=== PATIENT | male | born 1955 | race Hispanic/Latino ===

== ENCOUNTER 2017-10-31 17:27 | Inpatient (IN) | payer MEDICAID ==
[2017-10-31 17:27] VITALS: BMI 34.1
[2017-10-31] MEDS ORDERED: Sodium Chloride 0.9% 1,000 ML IV SCH ×2 (18:15→19:57)
--- NOTE | 2017-10-31 18:15 | ED PDOC ---
"Arrival/HPI - General Chief Complaint: Alcohol Ingestion Time Seen by Provider: 10/31/17 18:08 Historian: Patient - History of Present Illness Narrative History of Present Illness (Text): 10/31/17 18:08 62 y/o male, pmh including htn/DM/alcohol withdrawal/A.fibb but not compliance with cardizem 30mg po at home/C5-C7 fracture history, psychiatric history including alcohol abuse, bib brother who found the patient intoxicated on the ground today around 12 pm with drinking/wine bottles around the floor. As per the brother, the patient has chronic alcoholic brother and used to live with his own girlfriend but not anymore. The brother came to visit him today and noted the patient is intoxicated on the ground, no broken glass on the ground, no urinary or bowel incontinence/retention, no other medical or psychological complaints. Past Medical History - Provider Review Nursing Documentation Reviewed: Yes - Infectious Disease Hx of Infectious Diseases: None, MRSA - Tetanus Immunization Tetanus Immunization: Unknown - Cardiac Hx Cardiac Disorders: Yes Hx Hypertension: Yes - Pulmonary Hx Respiratory Disorders: Yes Hx Sleep Apnea: Yes Hx Tuberculosis: No - Neurological Hx Neurological Disorder: No HX Cerebrovascular Accident: No Hx Seizures: No - HEENT Hx HEENT Disorder: No (wears eyeglasses) - Renal Hx Renal Disorder: No - Endocrine/Metabolic Hx Endocrine Disorders: No - Hematological/Oncological Hx Blood Disorders: No Hx Cancer: No - Integumentary Hx Dermatological Disorder: No - Musculoskeletal/Rheumatological Hx Arthritis: Yes (right knee and neck) - Gastrointestinal Hx Gastrointestinal Disorders: Yes - Genitourinary/Gynecological Hx Sexually Transmitted Diseases: No - Psychiatric Hx Anxiety: No Hx Bipolar Disorder: No Hx Depression: No Hx Post Traumatic Stress Disorder: No Hx Schizophrenia: No Hx Substance Use: No - Surgical History Hx Musculoskeletal Surgery: Yes Hx Orthopedic Surgery: Yes (right knee torn ligament 1976) Other/Comment: Neck, right wrist/hand sx pins 2007, 1992 cervical fusion c 4 5 6 was injured swimming in [place], - Anesthesia Hx Anesthesia: Yes Hx Anesthesia Reactions: No Hx Malignant Hyperthermia: No - Suicidal Assessment Feels Threatened In Home Enviroment: No Family/Social History - Physician Review Nursing Documentation Reviewed: Yes Family/Social History: Unknown Family HX Smoking Status: Heavy Smoker > 10 Cigarettes Daily Hx Alcohol Use: Yes Frequency of alcohol use: Daily Hx Substance Use: No Hx Substance Use Treatment: No Allergies/Home Meds Allergies/Adverse Reactions: Allergies No Known Allergies Allergy (Verified 10/31/17 17:46) Home Medications: Home Meds Medication Instructions Recorded Confirmed Pantoprazole [Protonix] 40 mg PO DAILY 03/28/15 10/31/17 Review of Systems - Review of Systems Systems not reviewed;Unavailable: Intoxicated Constitutional: absent: Fatigue, Fevers Eyes: absent: Vision Changes Respiratory: absent: SOB, Cough Cardiovascular: absent: Chest Pain Gastrointestinal: absent: Abdominal Pain, Nausea, Vomiting Neurological: absent: Headache, Dizziness Physical Exam Vital Signs Temp Pulse Pulse Resp BP Pulse Ox 10/31/17 22:30 91 H 20 10/31/17 20:24 123 H 20 148/96 H 95 10/31/17 19:54 120 H 20 140/79 96 10/31/17 19:36 122 H 20 145/87 98 10/31/17 18:24 114 H 131/71 10/31/17 17:27 97.7 F 131 H 18 159/95 H 98 - Systems Exam Head: Present: Atraumatic, Normocephalic, Tenderness (frontal forehead), Ecchymosis (frontal forehead approx. 2cm diameter), Other (Facial: visible and palpable ecchymosis with tenderness noted on the lt. eyebrow/periorbital and lt. facial cheek region, no abrasion/laceration, no periorbital swelling, no mandibular tenderness or erythematous. ). No: Contusion, Swelling, Abrasion, Laceration Pupils: Present: PERRL Extroacular Muscles: Present: EOMI Conjunctiva: Present: Normal Ears: Present: NORMAL TM, Normal Canal. No: Erythema Mouth: Present: Moist Mucous Membranes Pharnyx: No: ERYTHEMA, EXUDATE, TONSILS ENLARGED, Uvular Deviation Nose (External): Present: Atraumatic. No: Abrasion, Contusion, Laceration, Lesions Nose (Internal): Present: Normal Inspection, No Active Bleeding. No: Rhinorrhea , Septal Hematoma, Epistaxis Neck: Present: Normal Range of Motion, Trachea Midline. No: Meningeal Signs, MIDLINE TENDERNESS, Paraspinal Tenderness, Lymphadenopathy Respiratory/Chest: Present: Clear to Auscultation, Good Air Exchange. No: Respiratory Distress, Accessory Muscle Use Cardiovascular: Present: Regular Rate and Rhythm, Normal S1, S2. No: Murmurs Abdomen: Present: Normal Bowel Sounds. No: Tenderness, Distention, Peritoneal Signs, Rebound, Guarding Back: Present: Normal Inspection. No: CVA Tenderness, Midline Tenderness, Paraspinal Tenderness, Decubitus Ulcer Upper Extremity: Present: Normal Inspection, Normal ROM, Neurovascularly Intact , Capillary Refill < 2s. No: Cyanosis, Edema, Tenderness, Swelling, Deformity Lower Extremity: Present: Normal Inspection, Normal ROM, Neurovascularly Intact , Capillary Refill < 2 s. No: Edema, Tenderness, Swelling, Deformity Neurological: Present: GCS=15, Motor Func Grossly Intact, Memory Normal Skin: Present: Warm, Dry, Normal Color. No: Rashes Psychiatric: Present: Alert, Intoxicated Medical Decision Making ED Course and Treatment: 10/31/17 18:27 -labs/ua/drug screen/alcohol/ck/troponin/bnp -chest xray -CT head/facial/neck -IVF cardizem 20 and 5mg/hr -bus driver/monitor -Observe and reassess 10/31/17 20:36 -EKG: A.fibb @ 119 BPM with RVR, no ST elevation or depression, non-specific T wave changes on the inferior lead, compared with previous ekg. -CT head 1. No definitive acute intracranial hemorrhage or acute territorial type infarct on this motion limited study. 2. There is minimal periventricular hypodensity hypodensity, likely representing small vessel ischemic disease in a patient this age. -CT facial 1. There is a small lamina papyracea fracture of the posterior medial right orbital wall. The acuity of this finding is indeterminate. The remaining visualized facial bones are intact, without acute fracture. 2. There is bilateral proptosis. There is thickening of the bilateral optic nerves distally. Clinical correlation and possible orbital MRI with/without contrast are recommended. 3. Nonspecific sclerotic change is visualized within the right mandibular body. Chronic osteomyelitis is within the differential. -CT neck 1. There is a moderate decrease in height or compression fracture of the C6 vertebral body. Focal concavities or erosions are visualized of the C6 endplates. Osteomyelitis cannot be excluded. Correlation with prior studies and possible MRI are recommended. 2. The remaining cervical levels are intact, without acute fracture or subluxation. 3. The cervical lordosis is slightly reversed. 4. Spondylosis is visualized at multiple cervical levels. 5. Bilateral neural foramina is identified at C7-T1. 6. There is postoperative fusion of the C5-C7 vertebral bodies. -Chest xray the cardiac silhouette appears enlarged. Bibasilar atelectatic changes are visualized. Otherwise, there is no confluent infiltrate. There is mild prominence of the pulmonary vascular markings. -Pt. has no acute rt. periorbital swelling or tenderness, no mandibular tenderness or external visible signs of infection, no elevation of wbc. -Labs are non-significant except Anion gap 26, [id number], Lactate Dehydrogenase 1120, Alcohol level 401 (IV banana bag ordered). -Troponin and BNP within normal limit. -Pt. is awake now stated that he has chronic C5-C7 fracture, had the fall on the rt. side of the face years ago and has no rt. periorbital/facial swelling, banana bag IV ordered for him. I discussed with DR. Alexandre about the CT results and review the results today, stated that the fractures are appear to be old but agreed this possible osteomylitis need to be adressed until MRI is done. -CT facial and cervical show possible osteomylitis noted, IV vancomycin/zosyn ordered, ESR/CRP/Blood cultures ordered -Pt. will need admission to [facility] for a.fibb/possible osteomylitis/chronic facial and neck fracture. -Based on the [id number] score is 2, he will need to be anticogulated but will deferred to the admitting team. 10/31/17 21:19 -I spoke to DR. Avalos and the hospital medical assistant DR. Adler, discussed about the case/labs/radiology results, evaluate the patient, agreed to admit this patient for further work up. -I discussed the case with Dr. Alexandre and he agreed that this patient needs admission which he will put in the admission order. -Pt. is having the neck pain, morphine 6mg IV ordered as he stated that he has chronic neck pain. - Critical Care Critical Care Minutes: 30 minutes, 45 minutes Critical Care Time: Unstable Narrative Critical Care (Text): 11/01/17 00:46 A.fibb with RVR tachycardia requiring IV cardizem and drip, Possible osteomolitis on the cervical spine from the cervical fusion surgery and rt. mandibular, Risk for alcohol withdrawal and aspiration. - Lab Interpretations Lab Results: 10/31/17 17:45 10/31/17 17:45 Lab Results 10/31/17 20:40: Urine Opiates Screen Negative, Urine Methadone Screen Negative, Ur Barbiturates Screen Negative, Ur Phencyclidine Scrn Negative, Ur Amphetamines Screen Negative, U Benzodiazepines Scrn Negative, U Oth Cocaine Metabols Negative, U Cannabinoids Screen Negative 10/31/17 18:30: Hemoglobin A1c 7.6 H 10/31/17 18:30: C-React Prot High Sens 10.00 H 10/31/17 18:30: ESR 33 H 10/31/17 17:50: Alcohol, Quantitative 401 H* 10/31/17 17:50: Salicylates < 1 L, Acetaminophen < 10.0 L 10/31/17 17:45: Triglycerides 186 H, Cholesterol 230 H, LDL Cholesterol Direct 169 H, HDL Cholesterol 54 10/31/17 17:45: PT 12.2, INR 1.07, APTT 32.5 10/31/17 17:45: WBC 6.2 D, RBC 4.25, Hgb 14.8, Hct 43.7, MCV 102.8, MCH 34.8, MCHC 33.9, RDW 15.5 H, Plt Count 90 L, MPV 10.7, Gran % 54.4, Lymph % (Auto) 36.1 H, [place] % (Auto) 8.4 H, Eos % (Auto) 0.0 L, Baso % (Auto) 1.1, Gran # 3.35 , Lymph # (Auto) 2.2, [place] # (Auto) 0.5, Eos # (Auto) 0.0, Baso # (Auto) 0.07 10/31/17 17:45: Sodium 143, Potassium 4.0, Chloride 97 L, Carbon Dioxide 24, Anion Gap 26 H, BUN 4 L, Creatinine 0.7 L, Est GFR ( Amer) > 60, Est GFR (Non-Af Amer) > 60, Random Glucose 241 H, Calcium 8.8, Magnesium 1.9, Total Bilirubin 1.3, AST 172 H, ALT 131 H, Alkaline Phosphatase 105, Lactate Dehydrogenase 1120 H, Total Creatine Kinase 180, Troponin I < 0.01, NT-Pro-B Natriuret Pep 194, Total Protein 8.2, Albumin 4.5, Globulin 3.7, Albumin/ Globulin Ratio 1.2 - RAD Interpretation Radiology Orders: 10/31/17 18:11 CERVICAL SPINE W/O CONTRAST [CT] Stat HEAD W/O CONTRAST [CT] Stat MAXILLOFACIAL W/O CONTRAST [CT] Stat CHEST ONE VIEW [RAD] Stat CT Head Artifacts: Motion artifact limits this study. Brain: There is minimal periventricular hypodensity hypodensity, likely representing small vessel ischemic disease in a patient this age. The acuity of the white matter disease is indeterminate. The white-wheeler differentiation is preserved demonstrating no acute territorial type infarct. There is mild prominence of the ventricles and sulci, compatible with atrophy. No definitive acute intracranial hemorrhage is seen. Motion artifact limits evaluation for hemorrhage within the posterior fossa and anterior temporal lobes, although no hemorrhage is visualized in these regions on the facial and cervical CT studies. Midline shift: There is no midline shift. Ventricles: See above. Bones/joints: For discussion of findings involving the facial bones and paranasal sinuses, refer to the facial CT from the same day. The calvarium demonstrates no evidence for a depressed fracture. Soft tissues: There is minimal soft tissue swelling or scarring involving the left frontal scalp. GALA ROCHA | Final Radiology Report CONFIDENTIALITY STATEMENT This report is intended only for use by the referring physician, and only in accordance with law. If you received this in error, call [phone]. Page 2 of 2 Vasculature: There is atherosclerotic calcification of the intracranial internal carotid arteries. Sinuses: See above. Mastoid air cells: No mastoid effusion. Orbits: There is bilateral proptosis. IMPRESSION: 1. No definitive acute intracranial hemorrhage or acute territorial type infarct on this motion limited study. 2. There is minimal periventricular hypodensity hypodensity, likely representing small vessel ischemic disease in a patient this age. 3. Mild atrophy. 4. Additional CT findings described above. Thank you for allowing us to participate in the care of your patient. Dictated and Authenticated by: Biju Call MD 10/31/2017 7:53 PM Eastern Time ([place] & [place]) CT Facial: FINDINGS: Bones/joints: There is a small lamina papyracea fracture of the posterior medial right orbital wall. The acuity of this finding is indeterminate. The remaining visualized facial bones are intact, without acute fracture. Nonspecific sclerotic change is visualized within the right mandibular body. Chronic osteomyelitis is within the differential. Soft tissues: No acute facial soft tissue swelling. Orbits: There is bilateral proptosis. There is thickening of the bilateral optic nerves distally. Bilateral orbital lens implants are visualized. Sinuses: Small mucous retention cysts or polyps are visualized within the right maxillary sinus, with minimal mucosal thickening. There is minimal mucosal thickening of the left frontal sinus. No air-fluid levels. Dental: Hypodensity visualized adjacent to a right lower molar tooth, consistent with periodontal disease. Nasopharynx: There is nasal septal deviation to the left. GALA ROCHA | Final Radiology Report CONFIDENTIALITY STATEMENT This report is intended only for use by the referring physician, and only in accordance with law. If you received this in error, call [phone]. Page 2 of 2 IMPRESSION: 1. There is a small lamina papyracea fracture of the posterior medial right orbital wall. The acuity of this finding is indeterminate. The remaining visualized facial bones are intact , without acute fracture. 2. There is bilateral proptosis. There is thickening of the bilateral optic nerves distally. Clinical correlation and possible orbital MRI with/without contrast are recommended. 3. Nonspecific sclerotic change is visualized within the right mandibular body. Chronic osteomyelitis is within the differential. 4. Paranasal sinus disease is noted above. 5. Incidental/non-acute findings are described above. Thank you for allowing us to participate in the care of your patient. Dictated and Authenticated by: Biju Call MD 10/31/2017 8:03 PM Eastern Time ([place] & [place]) Cervical CT: Vertebrae: There is a moderate decrease in height or compression fracture of the C6 vertebral body. Focal concavities or erosions are visualized of the C6 endplates. Osteomyelitis cannot be excluded. The remaining cervical levels are intact, without acute fracture or subluxation. The cervical lordosis is slightly reversed. There is postoperative fusion of the C5-C7 vertebral bodies, with fusion hardware/wires involving the posterior elements. The facet alignment is preserved bilaterally. The occipital condyles and C1-C2 articulations appear intact. Discs/spinal canal/neural foramina: Spondylosis is visualized at multiple cervical levels. Bilateral neural foramina is identified at C7-T1. Soft tissues: The prevertebral soft tissues appear within normal limits. Vasculature: Atherosclerotic changes are visualized. Lung apices: No pneumothorax. Other findings: Facet arthropathy is identified at multiple cervical levels. IMPRESSION: GALA ROCHA | Final Radiology Report CONFIDENTIALITY STATEMENT This report is intended only for use by the referring physician, and only in accordance with law. If you received this in error, call [phone]. Page 2 of 2 1. There is a moderate decrease in height or compression fracture of the C6 vertebral body. Focal concavities or erosions are visualized of the C6 endplates. Osteomyelitis cannot be excluded. Correlation with prior studies and possible MRI are recommended. 2. The remaining cervical levels are intact, without acute fracture or subluxation. 3. The cervical lordosis is slightly reversed. 4. Spondylosis is visualized at multiple cervical levels. 5. Bilateral neural foramina is identified at C7-T1. 6. There is postoperative fusion of the C5-C7 vertebral bodies. Thank you for allowing us to participate in the care of your patient. Dictated and Authenticated by: Biju Call MD 10/31/2017 8:14 PM Eastern Time ( & [place]) Chest xray: FINDINGS: Lungs: Bibasilar atelectatic changes are visualized. Otherwise, there is no confluent infiltrate. There is mild prominence of the pulmonary vascular markings. Pleural space: No pleural effusions. No pneumothorax. Heart: The cardiac silhouette appears enlarged. Mediastinum: There is atherosclerotic calcification of the aortic arch. Bones/joints: Surgical wires are identified at the level of the lower cervical spine. IMPRESSION: 1. The cardiac silhouette appears enlarged. 2. Bibasilar atelectatic changes are visualized. Otherwise, there is no confluent infiltrate. 3. There is mild prominence of the pulmonary vascular markings. Thank you for allowing us to participate in the care of your patient. Dictated and Authenticated by: Biju Call MD 10/31/2017 8:20 PM Eastern Time ( & She) Carton Machine Operator: Radiologist - EKG Interpretation EKG Interpretation (Text): 10/31/17 18:27 -EKG: A.fibb @ 119 BPM with RVR, no ST elevation or depression, non-specific T wave changes on the inferior lead, compared with previous ekg. Interpreted by ED Physician: Yes Type: 12 lead EKG Comparison: Com.w/previous EKG - Medication Orders Current Medication Orders: Alprazolam (Xanax) 0.5 mg PO BID REGINA PRN Reason: Protocol Stop: 11/08/17 10:01 Last Admin: 11/01/17 17:31 Dose: 0.5 mg Re-Assess: Reassess Psych Meds Document 11/01/17 18:31 FDE (Rec: 11/01/17 19:30 FDE [id number]) Reassess Psych Med Effective Arformoterol Tartrate (Brovana) 15 mcg IH [id number] [facility] Last Admin: 11/01/17 08:00 Dose: 15 mcg Artificial Tears (Artificial Tears) 0 ml OU TID [facility] Last Admin: 11/01/17 17:44 Dose: 1 drop Budesonide (Pulmicort Respules) 0.25 mg IH [id number] [facility] Last Admin: 11/01/17 08:01 Dose: 0.25 mg Folic Acid (Folic Acid) 1 mg PO DAILY [facility] Last Admin: 11/01/17 09:13 Dose: 1 mg Guaifenesin (Robitussin) 100 mg PO Q4H PRN PRN Reason: Cough Hydromorphone HCl (Dilaudid) 0.5 mg IVP Q4H PRN PRN Reason: Pain, severe (8-10) Last Admin: 11/01/17 12:06 Dose: 0.5 mg [facility] Pain Assessment Document 11/01/17 12:06 RDS (Rec: 11/01/17 12:09 RDS [id number]) Pain Reassessment Is this a pain reassessment? No Presence of Pain Presence of Pain Yes Pain Scale Used Pain Scale Used Numeric Location Pain Location Body Beef Selector Description Intensity of Pain at present 10 IVP Administration Document 11/01/17 12:06 RDS (Rec: 11/01/17 12:09 RDS [id number]) Charges for Administration # of IVP Administrations 1 Re-Assess: MAR Pain Assessment Document 11/01/17 13:06 DEL (Rec: 11/01/17 15:05 DEL [id number]) Pain Reassessment Is this a pain reassessment? Yes Sleep Is patient sleeping during reassessment? Yes Sodium Chloride (Sodium Chloride 0.9%) 1,000 mls @ 1,000 mls/hr IV .Q1H [facility] Ceftriaxone Sodium (Rocephin 1 Gram Ivpb) 1 gm in 100 mls @ 100 mls/hr IVPB DAILY [facility] PRN Reason: Protocol Vancomycin HCl (Vancomycin 1gm) 1 gm in 250 mls @ 167 mls/hr IVPB Q12H REGINA PRN Reason: Protocol Last Admin: 11/01/17 15:12 Dose: 167 mls/hr eMAR Start Stop Document 11/01/17 15:12 DEL (Rec: 11/01/17 15:12 [id number]) Intravenous Solution Start Date 11/01/17 Start Time 15:12 End Date 11/01/17 End time 16:42 Total Infusion Time 90 Insulin Human Lispro (Humalog Med) 0 units SC ACHS REGINA PRN Reason: Protocol Last Admin: 11/01/17 17:33 Dose: Not Given Non-Admin Reason: Blood Sugar Parameter MAR Blood Glucose Document 11/01/17 17:33 DEL (Rec: 11/01/17 17:33 [id number]) Blood Glucose Finger Stick Blood Glucose (70-120) 149 Levalbuterol HCl (Xopenex) 1.25 mg IH [id number] PRN PRN Reason: Shortness of Breath Lorazepam (Ativan) 1 mg IVP Q6H PRN; Protocol PRN Reason: Symptoms of alcohol withdrawl Last Admin: 11/01/17 01:27 Dose: 1 mg IVP Administration Document 11/01/17 01:27 [facility] (Rec: 11/01/17 01:27 [id number]) Charges for Administration # of IVP Administrations 1 Re-Assess: Reassess Psych Meds Document 11/01/17 01:57 [facility] (Rec: 11/01/17 04:40 [id number]) Reassess Psych Med Effective Lorazepam (Ativan) 2 mg PO Q6H REGINA PRN Reason: Protocol Last Admin: 11/01/17 17:31 Dose: 2 mg Re-Assess: Reassess Psych Meds Document 11/01/17 18:31 DEL (Rec: 11/01/17 18:47 [facility] [id number]) Reassess Psych Med Effective Metoprolol Tartrate (Lopressor) 50 mg PO 0800,1800 [facility] Last Admin: 11/01/17 17:30 Dose: 50 mg MAR Pulse and Blood Pressure Document 11/01/17 17:30 DEL (Rec: 11/01/17 17:31 [id number]) Pulse Pulse Rate (60-90) 87 Blood Pressure Blood Pressure (100/60-150/90) 148/98 Multivitamins/Minerals (Therapeutic-M Tab) 1 tab PO 0800 [facility] Last Admin: 11/01/17 09:14 Dose: 1 tab Ondansetron HCl (Zofran Inj) 4 mg IVP Q4H PRN PRN Reason: Nausea/Vomiting Last Admin: 11/01/17 12:05 Dose: 4 mg IVP Administration Document 11/01/17 12:05 RDS (Rec: 11/01/17 12:06 RDS [id number]) Charges for Administration # of IVP Administrations 1 Pantoprazole Sodium (Protonix Ec Tab) 40 mg PO ACB REGINA Thiamine HCl (Vitamin B1 Tab) 100 mg PO DAILY [facility] Last Admin: 11/01/17 09:13 Dose: 100 mg Tobramycin Sulfate (Tobrex 0.3% Oph Soln) 1 drop OS QID [facility] Last Admin: 11/01/17 17:32 Dose: 1 drop Discontinued Medications Diltiazem HCl (Cardizem) 10 mg IVP STAT STA Stop: 10/31/17 18:13 Last Admin: 10/31/17 18:18 Dose: 10 mg IVP Administration Document 10/31/17 18:18 EWO (Rec: 10/31/17 18:18 EWO [id number]) Charges for Administration # of IVP Administrations 1 [facility] Pulse and Blood Pressure Document 10/31/17 18:18 EWO (Rec: 10/31/17 18:18 EWO [id number]) Pulse Pulse Rate (60-90) 114 Blood Pressure Blood Pressure (100/60-150/90) 132/71 Diltiazem HCl (Cardizem) 20 mg IVP STAT STA Stop: 10/31/17 18:13 Last Admin: 10/31/17 18:24 Dose: 20 mg IVP Administration Document 10/31/17 18:24 EWO (Rec: 10/31/17 18:24 EWO [id number]) Charges for Administration # of IVP Administrations 1 MAR Pulse and Blood Pressure Document 10/31/17 18:24 EWO (Rec: 10/31/17 18:24 EWO [id number]) Pulse Pulse Rate (60-90) 114 Blood Pressure Blood Pressure (100/60-150/90) 131/71 Diphenhydramine HCl (Benadryl) 25 mg PO ONCE ONE Stop: 11/01/17 17:40 Last Admin: 11/01/17 17:50 Dose: 25 mg Hydromorphone HCl (Dilaudid) 0.5 mg IVP STAT STA Stop: 11/01/17 00:14 Last Admin: 11/01/17 00:21 Dose: 0.5 mg [facility] Pain Assessment Document 11/01/17 00:21 [facility] (Rec: 11/01/17 00:21 [id number]) Pain Reassessment Is this a pain reassessment? No Presence of Pain Presence of Pain Yes Location Pain Location Body Site Neck IVP Administration Document 11/01/17 00:21 [facility] (Rec: 11/01/17 00:21 [id number]) Charges for Administration # of IVP Administrations 1 Re-Assess: [facility] Pain Assessment Document 11/01/17 01:21 [facility] (Rec: 11/01/17 04:40 [id number]) Pain Reassessment Is this a pain reassessment? Yes Sleep Is patient sleeping during reassessment? Yes Sodium Chloride (Sodium Chloride 0.9%) 1,000 mls @ 100 mls/hr IV .Q10H [facility] Last Admin: 10/31/17 18:19 Dose: 100 mls/hr eMAR Start Stop Document 10/31/17 18:19 EWO (Rec: 10/31/17 18:19 EWO [id number]) Intravenous Solution Start Date 10/31/17 Start Time 18:19 diltiaZEM IVPB 100mg in NS (Cardizem 100mg In Ns) 100 mls @ 5 mls/hr IV .Q20H PRN; Protocol; 5 MG/HR PRN Reason: TITRATE PER MD ORDER Last Admin: 10/31/17 19:54 Dose: 5 mls/hr eMAR Start Stop Document 10/31/17 19:54 SS (Rec: 10/31/17 19:55 SS [id number]) Intravenous Solution Start Date 10/31/17 Start Time 19:54 Multivitamins/Vitamin C 10 ml/Thiamine HCl 100 mg/ Folic Acid 1 mg/ Sodium Chloride 1,011.2 mls @ 100 mls/hr IV .Q10H7M ONE Stop: 11/01/17 05:57 Last Admin: 11/01/17 01:27 Dose: 100 mls/hr eMAR Start Stop Document 11/01/17 01:27 [facility] (Rec: 11/01/17 01:27 [id number]) Intravenous Solution Start Date 11/01/17 Start Time 01:27 Vancomycin HCl (Vancomycin 1gm) 1 gm in 250 mls @ 167 mls/hr IVPB STAT STA PRN Reason: Protocol Stop: 10/31/17 21:52 Last Admin: 11/01/17 00:53 Dose: 167 mls/hr eMAR Start Stop Document 11/01/17 00:53 [facility] (Rec: 11/01/17 00:54 [id number]) Intravenous Solution Start Date 11/01/17 Start Time 00:54 Piperacillin Sod/Tazobactam Sod (Zosyn 3.375 In Ns 100ml) 100 mls @ 200 mls/hr IVPB STAT STA PRN Reason: Protocol Stop: 10/31/17 20:52 Last Admin: 10/31/17 22:18 Dose: 200 mls/hr eMAR Start Stop Document 10/31/17 22:18 SS (Rec: 10/31/17 22:20 SS [id number]) Intravenous Solution Start Date 10/31/17 Start Time 22:20 Levalbuterol HCl (Xopenex) 1.25 mg IH [id number] PRN PRN Reason: Shortness of Breath Lorazepam (Ativan) 2 mg PO Q6H REGINA PRN Reason: Protocol Last Admin: 11/01/17 05:00 Dose: 2 mg Behavioural Document 11/01/17 05:00 [facility] (Rec: 11/01/17 05:00 [id number]) Maintenance Maintenance Dose Yes Metoprolol Tartrate (Lopressor) 50 mg PO STAT STA Stop: 10/31/17 23:13 Last Admin: 11/01/17 00:21 Dose: 50 mg MAR Pulse and Blood Pressure Document 11/01/17 00:21 [facility] (Rec: 11/01/17 00:22 [id number]) Pulse Pulse Rate (60-90) 124 Blood Pressure Blood Pressure (100/60-150/90) 137/86 Morphine Sulfate (Morphine) 2 mg IVP STAT STA Stop: 10/31/17 22:47 Last Admin: 10/31/17 22:58 Dose: 2 mg MAR Pain Assessment Document 10/31/17 22:58 [facility] (Rec: 10/31/17 22:58 [id number]) Pain Reassessment Is this a pain reassessment? No Presence of Pain Presence of Pain Yes Location Pain Location Body Site Neck IVP Administration Document 10/31/17 22:58 [facility] (Rec: 10/31/17 22:58 [id number]) Charges for Administration # of IVP Administrations 1 Re-Assess: MAR Pain Assessment Document 10/31/17 23:58 [facility] (Rec: 11/01/17 04:41 [id number]) Pain Reassessment Is this a pain reassessment? Yes Presence of Pain Presence of Pain Yes Pantoprazole Sodium (Protonix Inj) 40 mg IVP DAILY [facility] Last Admin: 11/01/17 09:15 Dose: 40 mg IVP Administration Document 11/01/17 09:15 DEL (Rec: 11/01/17 09:15 DEL [id number]) Charges for Administration # of IVP Administrations 1 Phenylephrine HCl (Phenylephrine Opht 10% Soln) 0 ml OU Q2M REGINA Stop: 11/01/17 12:35 Last Admin: 11/01/17 12:56 Dose: 1 ml Tropicamide (Mydriacyl 1% Opht Soln 15ml) 2 drop OU Q2M REGINA Stop: 11/01/17 12:35 Last Admin: 11/01/17 12:55 Dose: 2 drop - PA / [employer] / Resident Statement MD/DO has reviewed & agrees with the documentation as recorded. Disposition/Present on Arrival - Present on Arrival Any Indicators Present on Arrival: No History of DVT/PE: No History of Uncontrolled Diabetes: No Urinary Catheter: No History of Decub. Ulcer: No History Surgical Site Infection Following: None - Disposition Have Diagnosis and Disposition been Completed?: Yes Diagnosis: Atrial fibrillation with rapid ventricular response, Alcohol intoxication, Fall , Lamina papyracea fracture, Abnormal CT scan Disposition: HOSPITALIZED Disposition Time: 18:29 Patient Plan: Admission, Telemetry Patient Problems: Current Active Problems Problem Status Onset Atrial fibrillation with rapid ventricular response Acute Alcohol intoxication Acute Fall Acute Lamina papyracea fracture Acute Abnormal CT scan Acute Condition: STABLE"
[2017-10-31] MEDS ORDERED: diltiaZEM IVPB 100mg in NS 100 ML IV PRN (18:24)
[2017-10-31 18:27] LABS: BASO # 0.07 K/mm3 (0.0-2.0); BASO % 1.1 % (0.0-3.0); GRAN # 3.35 (1.4-6.5); GRAN % 54.4 % (50.0-68.0); HEMOGLOBIN 14.8 g/dL (14.0-18.0); LYMPH # 2.2 (1.2-3.4); LYMPH % 36.1 % (22.0-35.0); MEAN CELL VOLUME 102.8 fl (80.0-105.0); MEAN CORPUSCULAR HEMOGLOBIN 34.8 pg (25.0-35.0); MEAN CORPUSCULAR HGB CONC 33.9 g/dl (31.0-37.0); MEAN PLATELET VOLUME 10.7 fl (7.0-11.0); MONO # 0.5 (0.1-0.6); MONO % 8.4 % (1.0-6.0); RBC 4.25 10^6/uL (3.5-6.1); RED CELL DISTRIBUTION WIDTH 15.5 % (11.5-14.5); WHITE BLOOD COUNT 6.2 10^3/ul (4.5-11.0)
[2017-10-31 18:33] LABS: ALB/GLOB RATIO 1.2 (1.1-1.8); ALBUMIN 4.5 g/dL (3.0-4.8); CALCIUM 8.8 mg/dL (8.4-10.5); GFR AFRICAN-AMERICAN > 60; GFR NON-AFRICAN AMERICAN > 60
[2017-10-31 18:41] LABS: INR 1.07 (0.93-1.08); PARTIAL THROMBOPLASTIN TIME 32.5 Seconds (25.1-36.5); PROTHROMBIN TIME 12.2 SECONDS (9.4-12.5)
[2017-10-31 18:45] LABS: ALT/SGPT 131 U/L (7-56); AST/SGOT 172 U/L (17-59); B-TYPE NATRIURETIC PEPTIDE 194 pg/mL (0-450); BLOOD UREA NITROGEN 4 mg/dL (7-21); TROPONIN I < 0.01 ng/mL
[2017-10-31 19:23] LABS: ACETAMINOPHEN < 10.0 ug/ml (10.0-20.0); SALICYLATE < 1 mg/dL (2.0-20.0)
[2017-10-31] MEDS ORDERED: Multivitamin (MVI) 10 ML, Thiamine 100 MG, Folic Acid 1 MG in Sodium Chloride 0.9% 1,00... IV ONE (19:51)
--- NOTE | 2017-10-31 19:53 | CT ---
EXAM: CT Head Without Intravenous Contrast EXAM DATE/TIME: 10/31/2017 6:11 PM CLINICAL HISTORY: The patient age is 62 years old and is male; Injury or trauma; Fall; Initial encounter; Blunt trauma (contusions or hematomas); Consciousness not specified; Additional info: Fall, ETOH Facility exam id and description: Ct heads head w/o contrast TECHNIQUE: Axial computed tomography images of the head/brain without intravenous contrast. All CT scans at this facility use one or more dose reduction techniques, viz.: automated exposure control; ma/kV adjustment per patient size (including targeted exams where dose is matched to indication; i.e. head); or iterative reconstruction technique. Coronal and sagittal reformatted images were created and reviewed. COMPARISON: No relevant prior studies available. FINDINGS: Artifacts: Motion artifact limits this study. Brain: There is minimal periventricular hypodensity hypodensity, likely representing small vessel ischemic disease in a patient this age. The acuity of the white matter disease is indeterminate. The white-wheeler differentiation is preserved demonstrating no acute territorial type infarct. There is mild prominence of the ventricles and sulci, compatible with atrophy. No definitive acute intracranial hemorrhage is seen. Motion artifact limits evaluation for hemorrhage within the posterior fossa and anterior temporal lobes, although no hemorrhage is visualized in these regions on the facial and cervical CT studies. Midline shift: There is no midline shift. Ventricles: See above. Bones/joints: For discussion of findings involving the facial bones and paranasal sinuses, refer to the facial CT from the same day. The calvarium demonstrates no evidence for a depressed fracture. Soft tissues: There is minimal soft tissue swelling or scarring involving the left frontal scalp. Vasculature: There is atherosclerotic calcification of the intracranial internal carotid arteries. Sinuses: See above. Mastoid air cells: No mastoid effusion. Orbits: There is bilateral proptosis. IMPRESSION: 1. No definitive acute intracranial hemorrhage or acute territorial type infarct on this motion limited study. 2. There is minimal periventricular hypodensity hypodensity, likely representing small vessel ischemic disease in a patient this age. 3. Mild atrophy. 4. Additional CT findings described above.
--- NOTE | 2017-10-31 20:03 | CT ---
EXAM: CT Maxillofacial Without Intravenous Contrast EXAM DATE/TIME: 10/31/2017 6:11 PM CLINICAL HISTORY: The patient age is 62 years old and is male; Injury or trauma; Fall; Initial encounter; Blunt trauma (contusions or hematomas); Forehead; Additional info: Fall, ETOH Facility exam id and description: Ct faces maxillofacial w/o contrast TECHNIQUE: Axial computed tomography images of the face without intravenous contrast. All CT scans at this facility use one or more dose reduction techniques, viz.: automated exposure control; ma/kV adjustment per patient size (including targeted exams where dose is matched to indication; i.e. head); or iterative reconstruction technique. Coronal and sagittal reformatted images were created and reviewed. COMPARISON: No relevant prior studies available. FINDINGS: Bones/joints: There is a small lamina papyracea fracture of the posterior medial right orbital wall. The acuity of this finding is indeterminate. The remaining visualized facial bones are intact, without acute fracture. Nonspecific sclerotic change is visualized within the right mandibular body. Chronic osteomyelitis is within the differential. Soft tissues: No acute facial soft tissue swelling. Orbits: There is bilateral proptosis. There is thickening of the bilateral optic nerves distally. Bilateral orbital lens implants are visualized. Sinuses: Small mucous retention cysts or polyps are visualized within the right maxillary sinus, with minimal mucosal thickening. There is minimal mucosal thickening of the left frontal sinus. No air-fluid levels. Dental: Hypodensity visualized adjacent to a right lower molar tooth, consistent with periodontal disease. Nasopharynx: There is nasal septal deviation to the left. IMPRESSION: 1. There is a small lamina papyracea fracture of the posterior medial right orbital wall. The acuity of this finding is indeterminate. The remaining visualized facial bones are intact, without acute fracture. 2. There is bilateral proptosis. There is thickening of the bilateral optic nerves distally. Clinical correlation and possible orbital MRI with/without contrast are recommended. 3. Nonspecific sclerotic change is visualized within the right mandibular body. Chronic osteomyelitis is within the differential. 4. Paranasal sinus disease is noted above. 5. Incidental/non-acute findings are described above.
--- NOTE | 2017-10-31 20:14 | CT ---
EXAM: CT Cervical Spine Without Intravenous Contrast EXAM DATE/TIME: 10/31/2017 6:11 PM CLINICAL HISTORY: The patient age is 62 years old and is male; Injury or trauma; Fall; Initial encounter; Blunt trauma; Additional info: Fall, ETOH Facility exam id and description: Ct csps cervical spine w/o contrast TECHNIQUE: Axial computed tomography images of the cervical spine without intravenous contrast. All CT scans at this facility use one or more dose reduction techniques, viz.: automated exposure control; ma/kV adjustment per patient size (including targeted exams where dose is matched to indication; i.e. head); or iterative reconstruction technique. Coronal and sagittal reformatted images were created and reviewed. COMPARISON: No relevant prior studies available. FINDINGS: Vertebrae: There is a moderate decrease in height or compression fracture of the C6 vertebral body. Focal concavities or erosions are visualized of the C6 endplates. Osteomyelitis cannot be excluded. The remaining cervical levels are intact, without acute fracture or subluxation. The cervical lordosis is slightly reversed. There is postoperative fusion of the C5-C7 vertebral bodies, with fusion hardware/wires involving the posterior elements. The facet alignment is preserved bilaterally. The occipital condyles and C1-C2 articulations appear intact. Discs/spinal canal/neural foramina: Spondylosis is visualized at multiple cervical levels. Bilateral neural foramina is identified at C7-T1. Soft tissues: The prevertebral soft tissues appear within normal limits. Vasculature: Atherosclerotic changes are visualized. Lung apices: No pneumothorax. Other findings: Facet arthropathy is identified at multiple cervical levels. IMPRESSION: 1. There is a moderate decrease in height or compression fracture of the C6 vertebral body. Focal concavities or erosions are visualized of the C6 endplates. Osteomyelitis cannot be excluded. Correlation with prior studies and possible MRI are recommended. 2. The remaining cervical levels are intact, without acute fracture or subluxation. 3. The cervical lordosis is slightly reversed. 4. Spondylosis is visualized at multiple cervical levels. 5. Bilateral neural foramina is identified at C7-T1. 6. There is postoperative fusion of the C5-C7 vertebral bodies.
--- NOTE | 2017-10-31 20:21 | RAD ---
EXAM: XR Chest, 1 View EXAM DATE/TIME: 10/31/2017 6:11 PM CLINICAL HISTORY: The patient age is 62 years old and is male; Signs and symptoms; Other: Medical clearance Facility exam id and description: Rad chest 1 chest one view TECHNIQUE: Frontal view of the chest. COMPARISON: DX - CHEST PORTABLE 2016-06-09 17:01 FINDINGS: Lungs: Bibasilar atelectatic changes are visualized. Otherwise, there is no confluent infiltrate. There is mild prominence of the pulmonary vascular markings. Pleural space: No pleural effusions. No pneumothorax. Heart: The cardiac silhouette appears enlarged. Mediastinum: There is atherosclerotic calcification of the aortic arch. Bones/joints: Surgical wires are identified at the level of the lower cervical spine. IMPRESSION: 1. The cardiac silhouette appears enlarged. 2. Bibasilar atelectatic changes are visualized. Otherwise, there is no confluent infiltrate. 3. There is mild prominence of the pulmonary vascular markings.
[2017-10-31] MEDS ORDERED: Piperacillin/Tazobact 3.375 gm 100 ML IVPB STA (20:23)
[2017-10-31] MEDS ORDERED: Vancomycin 1gm in NS 250ml 1 GM/250 ML BAG IVPB STA (20:23)
[2017-10-31] MEDS ORDERED: Morphine 5 MG/ML SYRINGE IVP STA (21:18)
[2017-10-31 21:39] LABS: BARBITURATES, UR NEGATIVE (NEGATIVE); BENZODIAZEPINES, UR NEGATIVE (NEGATIVE); OPIATES, UR NEGATIVE (NEGATIVE); PHENCYCLIDINE, UR NEGATIVE (NEGATIVE)
[2017-10-31] MEDS ORDERED: Levalbuterol 1.25 MG/3 ML Inhal Soln UD IH PRN (22:43)
[2017-10-31] MEDS ORDERED: Morphine 2 mg/ml ISec IVP STA (22:46)
--- NOTE | 2017-10-31 23:30 | CP.PCM.HP ---
<Nayely Hanson - Last Filed: 11/01/17 00:53> History of Present Illness - History of Present Illness History of Present Illness: Nayely Hanson, PGY1, H&P for Dr Avalos: CC: palpitations 62 year old male with PMH afib on Eliquis, HTN, DM?, Vitamin D deficiency, presents for palpations for past few hours. Pt states that he has been drinking alcohol quite a lot yesterday and today, started feeling palpitations, denies cp , diaphoresis, abdominal pain, nausea, vomiting, dizziness. Pt was quite intoxicated at his brother's home, and brought to the ED by brother. Pt also reports that he tripped on a rug 3 days ago, and hit his head. Denies fever, chills, worsening neck pain, sob, epigastric pain, constipation, diarrhea, leg swelling. Pt reports a chronic cough as he is a smoker. In ED, pt afebrile, afib with RVR HR 119 on 12 lead EKG, given Cardizem 30 mg IV in ED, started on cardizem drip. CT head neg. Facial CT shows a small lamina papyracea fracture of posterior medial right orbital wall. CT neck shows focal concavities/erosions of C6 endplates - concerning for osteomeyelitis. 12 point ROS obtained and negative, except as per hPI. PMH: afib on Eliquis, HTN, DM?, Vitamin D deficiency PSH: spine, right wrist and right knee surgery many years ago in an accident ALL: Ibuprofen (GERD), Librium (nausea) FH: denies SH: Drinks a bottle of wine daily with some beers. + tobacco use. Home Meds: Norvasc, Metoprolol 50 mg PO BID, Vitamin D 50,000 units weekly, Eliquis 2.5 mg PO BID. Does not recall taking Cardizem at home. Pharmacy: [facility] in [facility]; call in AM to confirm meds PMD: Dr Zhou in [facility] Present on Admission - Present on Admission Any Indicators Present on Admission: No History of DVT/PE: No History of Uncontrolled Diabetes: No Urinary Catheter: No Decubitus Ulcer Present: No Review of Systems - Review of Systems All systems: reviewed and no additional remarkable complaints except Review of Systems: as per HPI Past Patient History - Infectious Disease Hx of Infectious Diseases: None, MRSA - Tetanus Immunizations Tetanus Immunization: Unknown - Past Medical History & Family History Past Medical History?: Yes - Past Social History Smoking Status: Heavy Smoker > 10 Cigarettes Daily - CARDIAC Hx Cardiac Disorders: Yes Hx Hypertension: Yes - PULMONARY Hx Respiratory Disorders: Yes Hx Sleep Apnea: Yes Hx Tuberculosis: No - NEUROLOGICAL Hx Neurological Disorder: No HX Cerebrovascular Accident: No Hx Seizures: No - HEENT Hx HEENT Problems: No (wears eyeglasses) - RENAL Hx Chronic Kidney Disease: No - ENDOCRINE/METABOLIC Hx Endocrine Disorders: No - HEMATOLOGICAL/ONCOLOGICAL Hx Blood Disorders: No Hx Cancer: No - INTEGUMENTARY Hx Dermatological Problems: No - MUSCULOSKELETAL/RHEUMATOLOGICAL Hx Arthritis: Yes (right knee and neck) - GASTROINTESTINAL Hx Gastrointestinal Disorders: Yes - GENITOURINARY/GYNECOLOGICAL Hx Sexually Transmitted Disorders: No - PSYCHIATRIC Hx Anxiety: No Hx Bipolar Disorder: No Hx Depression: No Hx Post Traumatic Stress Disorder: No Hx Schizophrenia: No Hx Substance Use: No - SURGICAL HISTORY Hx Musculoskeletal Surgery: Yes Hx Orthopedic Surgery: Yes (right knee torn ligament 1976) Other/Comment: Neck, right wrist/hand sx pins 2007, 1992 cervical fusion c 4 5 6 was injured swimming in [place], - ANESTHESIA Hx Anesthesia: Yes Hx Anesthesia Reactions: No Hx Malignant Hyperthermia: No Meds Allergies/Adverse Reactions: Allergies Allergy/AdvReac Type Severity Reaction Status Date / Time No Known Allergies Allergy Verified 10/31/17 17:46 Physical Exam - Constitutional Appears: Unkempt, Older Than Stated Age Additional comments: intoxicated - Head Exam Head Exam: NORMAL INSPECTION, NORMOCEPHALIC - Eye Exam Eye Exam: EOMI, PERRL. absent: Conjunctival injection, Nystagmus, Periorbital swelling, Periorbital tenderness, Scleral icterus Pupil Exam: NORMAL ACCOMODATION, PERRL. absent: Fixed, Irregular, Miosis, Unequal - ENT Exam ENT Exam: Mucous Membranes Moist. absent: Mucous Membranes Dry - Neck Exam Additional comments: + posterior cervical neck scar noted. active ROM intact in flexion, limited sidebending, extension due to prior injury. - Respiratory Exam Respiratory Exam: absent: Accessory Muscle Use, Chest Wall Tenderness, Rales, Rhonchi, Respiratory Distress Additional comments: Mild expiratory wheezing upper lobes bilaterally - Cardiovascular Exam Cardiovascular Exam: Irregular Rhythm - GI/Abdominal Exam GI & Abdominal Exam: Normal Bowel Sounds, Soft. absent: Distended, Firm, Guarding, Mass, Rigid, Tenderness - Extremities Exam Extremities exam: Positive for: normal capillary refill, pedal edema, pedal pulses present. Negative for: calf tenderness - Back Exam Back exam: NORMAL INSPECTION - Neurological Exam Neurological exam: Alert, Oriented x3 - Psychiatric Exam Psychiatric exam: Normal Affect, Normal Mood - Skin Skin Exam: Dry, Normal Color, Warm Results - Vital Signs Recent Vital Signs: Last Vital Signs Temp 97.7 F 10/31/17 17:27 Pulse 123 H 10/31/17 20:24 Resp 20 10/31/17 20:24 BP 148/96 H 10/31/17 20:24 Pulse Ox 95 10/31/17 20:24 - Labs Result Diagrams: 10/31/17 17:45 10/31/17 17:45 Assessment & Plan - Assessment and Plan (Free Text) Assessment: 62 year old male with PMH afib on Eliquis, HTN, DM?, Vitamin D deficiency, presents for afib with RVR 2/2 alcohol intoxication, found to have possible osteomyelitis of cervical C6 on CT neck: Afib with RVR: 2/2 alcohol intoxication, medication noncompliance - EKG: A.fibb @ 119 BPM with RVR, no ST elevation or depression, non-specific T wave changes on the inferior lead, compared with previous ekg. - trop neg x1 - Given Cardizem 30 mg IV in ED, started on Cardizem drip - Started on home Metoprolol 50 mg PO BID - Hold home Norvasc for now - resumed home Eliquis 2.5 mg PO BID (reconsider since pt is alcoholic/falls). CHADS2 score 2. - Call pharmacy in AM to confirm home meds - Cont to monitor Osteomyelitis of C7: incidental finding, acute vs chronic? - CT neck shows a moderate decrease in height or compression fracture of the C6 vertebral body. Focal concavities or erosions are visualized of the C6 endplates. Osteomyelitis cannot be excluded. - No worsening of neck pain, fevers, chills - ESR 33 - MRI cervical spine in AM Alcohol intoxication/impending withdrawal: - CIWA - Fall/aspiration precautions - Ativan PO azul, IV prn - thiamin, folic acid, multivitamin - ETOH level 200s Transaminitis: - ALT 172, AST 131 - Previously high LFTS noted - likely alcohol related - Cont to monitor. Avoid hepatotoxic agents. Hx of HTN: -c/w home med metoprolo - hold home Norvasc Hx of COPD/smoking: - Pulmicort, brovana, xopenex prn - Advised cessation Pharmacy: call in AM to confirm home meds PPX: Eliquis, Protonix Discussed with Dr Avalos. - Date & Time Date: 11/01/17 Time: 00:53 <Yohannes Avalos P - Last Filed: 11/01/17 20:13> Results - Vital Signs Recent Vital Signs: Last Vital Signs Temp 98.4 F 11/01/17 18:00 Pulse 110 H 11/01/17 18:00 Resp 20 11/01/17 18:00 BP 148/98 H 11/01/17 18:00 Pulse Ox 95 11/01/17 06:00 - Labs Result Diagrams: 11/01/17 08:00 11/01/17 08:00 Labs: Laboratory Results - last 24 hr 11/01/17 11/01/17 11/01/17 02:00 08:00 08:00 WBC 4.8 D RBC 4.10 Hgb 14.0 Hct 42.1 MCV 102.7 MCH 34.1 MCHC 33.3 RDW 15.3 H Plt Count 71 L MPV 10.6 Gran % 60.2 Lymph % (Auto) 31.1 [place] % (Auto) 7.9 H Eos % (Auto) 0.2 L Baso % (Auto) 0.6 Gran # 2.90 Lymph # (Auto) 1.5 [place] # (Auto) 0.4 Eos # (Auto) 0.0 Baso # (Auto) 0.03 Sodium 141 Potassium 3.7 Chloride 97 L Carbon Dioxide 29 Anion Gap 19 BUN 5 L Creatinine 0.6 L Est GFR ( Amer) > 60 Est GFR (Non-Af Amer) > 60 POC Glucose (mg/dL) Random Glucose 201 H Calcium 8.9 Phosphorus 3.0 Magnesium 1.6 L Total Bilirubin 1.7 H AST 155 H ALT 120 H Alkaline Phosphatase 98 Total Protein 7.7 Albumin 4.3 Globulin 3.4 Albumin/Globulin Ratio 1.3 Urine Color Yellow Urine Appearance Sl cloudy Urine pH 6.0 Ur Specific [place] 1.025 Urine Protein 30 H Urine Glucose (UA) 100 H Urine Ketones 15 H Urine Blood Trace-intact H Urine Nitrate Negative Urine Bilirubin Negative Urine Urobilinogen 2.0 H Ur Leukocyte Esterase Negative Urine RBC 0 - 2 Urine WBC 0 - 2 Ur Epithelial Cells 0 - 2 11/01/17 11/01/17 11/01/17 08:00 11:43 16:49 WBC RBC Hgb Hct MCV MCH MCHC RDW Plt Count MPV Gran % Lymph % (Auto) [place] % (Auto) Eos % (Auto) Baso % (Auto) Gran # Lymph # (Auto) [place] # (Auto) Eos # (Auto) Baso # (Auto) Sodium Potassium Chloride Carbon Dioxide Anion Gap BUN Creatinine Est GFR ( Amer) Est GFR (Non-Af Amer) POC Glucose (mg/dL) 166 H 173 H 149 H Random Glucose Calcium Phosphorus Magnesium Total Bilirubin AST ALT Alkaline Phosphatase Total Protein Albumin Globulin Albumin/Globulin Ratio Urine Color Urine Appearance Urine pH Ur Specific [place] Urine Protein Urine Glucose (UA) Urine Ketones Urine Blood Urine Nitrate Urine Bilirubin Urine Urobilinogen Ur Leukocyte Esterase Urine RBC Urine WBC Ur Epithelial Cells Attending/Attestation - Attestation I have personally seen and examined this patient.: Yes I have fully participated in the care of the patient.: Yes I have reviewed all pertinent clinical information: Yes Notes (Text): Assessment Patient brought in to the hospital by his brother for acute alcohol intoxication , CT cervical spine showed incidental finding of erosion of endplates of his 3 fused spine with no prior imaging to compare with, as per the patient no new neurological complains, no new pain, but has chronic pain, intermittent tingling in both hands. H/o afib, on eliquis, tobacco abuse, alcohol abuse, obese, sleep apnea, htn. Plan Patient restarted on home meds Scheduled and prn bzd, thiamine, mvt, fa Afib rate control with scheduled metoprolol will start at home dose prn neb, azul pulimchort Since patient is clinically not septic or has picture of acute or chronic infection abx was not started and MRI will scheduled to assess abnormal CT findings to look acute marrow edema. Counselled about tobacco, alcohol cessation and compliance with medications See orders for detail. 11/01/17 20:12
[2017-10-31 23:45] LABS: HDL CHOLESTEROL 54 mg/dL (29-60)
[2017-10-31 23:55] LABS: LDL CHOLESTEROL 169 mg/dL (0-129)
[2017-11-01] MEDS ORDERED: HYDROmorphone 0.5 mg/0.5 ml ISec IVP STA (00:13)
[2017-11-01] MEDS ORDERED: Levalbuterol 1.25 MG/3 ML Inhal Soln UD IH PRN (02:00)
[2017-11-01 02:19] LABS: URINE BILIRUBIN NEGATIVE (NEGATIVE); URINE BLOOD TRACE-INTACT (NEGATIVE); URINE GLUCOSE (UA) 100 mg/dL (NEGATIVE); URINE LEUKOCYTE ESTERASE NEGATIVE Leu/uL (NEGATIVE); URINE PROTEIN 30 mg/dL (<30 mg/dL)
[2017-11-01 02:21] LABS: URINE APPEARANCE SL CLOUDY (CLEAR); URINE COLOR YELLOW (YELLOW)
[2017-11-01 02:22] LABS: URINE EPITHELIAL CELLS 0 - 2 /hpf (0-5); URINE RBC 0 - 2 /hpf (0-2); URINE WBC 0 - 2 /hpf (0-6)
[2017-11-01] MEDS: Arformoterol 15 mcg/2 ml Inh Sol IH SCH ×2 (08:00→20:40)
[2017-11-01] MEDS: Budesonide 0.25 mg/2 ml Inhal Susp UD IH SCH ×2 (08:01→20:40)
[2017-11-01 08:21] LABS: BASO # 0.03 K/mm3 (0.0-2.0); BASO % 0.6 % (0.0-3.0); EOS % 0.2 % (1.5-5.0); GRAN # 2.9 (1.4-6.5); GRAN % 60.2 % (50.0-68.0); LYMPH # 1.5 (1.2-3.4); LYMPH % 31.1 % (22.0-35.0); MEAN CELL VOLUME 102.7 fl (80.0-105.0); MEAN CORPUSCULAR HEMOGLOBIN 34.1 pg (25.0-35.0); MEAN CORPUSCULAR HGB CONC 33.3 g/dl (31.0-37.0); MEAN PLATELET VOLUME 10.6 fl (7.0-11.0); MONO # 0.4 (0.1-0.6); MONO % 7.9 % (1.0-6.0); RBC 4.1 10^6/uL (3.5-6.1); RED CELL DISTRIBUTION WIDTH 15.3 % (11.5-14.5); WHITE BLOOD COUNT 4.8 10^3/ul (4.5-11.0)
[2017-11-01] MEDS: Insulin Lispro (humaLOG) MEDIUM Coverage SC SCH ×4 (08:21→23:00)
[2017-11-01 08:44] LABS: ALB/GLOB RATIO 1.3 (1.1-1.8); ALBUMIN 4.3 g/dL (3.0-4.8); ALT/SGPT 120 U/L (7-56); AST/SGOT 155 U/L (17-59); BLOOD UREA NITROGEN 5 mg/dL (7-21); CALCIUM 8.9 mg/dL (8.4-10.5); GFR AFRICAN-AMERICAN > 60; GFR NON-AFRICAN AMERICAN > 60
[2017-11-01] MEDS: Multivitamin With Minerals Tab PO SCH (09:14)
--- NOTE | 2017-11-01 09:51 | CARD ---
APPROVED REPORT EKG Measurement Heart [id number] <Conclusion> Atrial fibrillation with rapid ventricular response Possible Inferior infarct, age undetermined Abnormal ECG
[2017-11-01] MEDS: Aritificial Tears (15ml) OU SCH ×3 (10:00→17:44)
[2017-11-01] MEDS ORDERED: Folic Acid 1 MG in Sodium Chloride 0.9% 50 ML IV SCH (10:00)
[2017-11-01] MEDS: HYDROmorphone 0.5 mg/0.5 ml ISec IVP PRN ×2 (12:06→20:29)
[2017-11-01] MEDS: Phenylephrine 10% Opht (5 ml) OU SCH ×3 (12:45→12:56)
[2017-11-01] MEDS: Tropicamide 1% Opht 150 DROP/15 ML OU SCH ×3 (12:45→12:55)
--- NOTE | 2017-11-01 14:23 | CP.PCM.PN ---
<Logan Rodriguez - Last Filed: 11/01/17 17:22> Subjective - Date & Time of Evaluation Date of Evaluation: 11/01/17 Time of Evaluation: 14:06 - Subjective Subjective: Medicine Progress Note: Patient seen and assessed at bedside. No acute events overnight noted by patient or nursing staff. Patient continues to endorse neck pain that he reports is chronic but acutely exacerbated. He denies fever, chills, headache, changes in his vision, chest pain, palpitations, SOB, wheezing, abdominal pain, N/V/D/C, urinary symptoms, skin changes or any numbness/tingling/weakness of any extremity. Objective - Vital Signs/Intake and Output Vital Signs (last 24 hours): Temp Pulse Resp BP Pulse Ox 98.2 F 81 20 143/99 H 95 11/01/17 12:00 11/01/17 12:00 11/01/17 12:00 11/01/17 12:00 11/01/17 06:00 Intake and Output: 11/01/17 11/01/17 06:59 18:59 Intake Total 875 600 Output Total 800 Balance 875 -200 - Medications Medications: Current Medications Alprazolam (Xanax) 0.5 mg PO BID [facility] PRN Reason: Protocol Stop: 11/08/17 10:01 Last Admin: 11/01/17 09:13 Dose: 0.5 mg Arformoterol Tartrate (Brovana) 15 mcg IH [id number] [facility] Last Admin: 11/01/17 08:00 Dose: 15 mcg Artificial Tears (Artificial Tears) 0 ml OU TID [facility] Budesonide (Pulmicort Respules) 0.25 mg IH [id number] [facility] Last Admin: 11/01/17 08:01 Dose: 0.25 mg Folic Acid (Folic Acid) 1 mg PO DAILY [facility] Last Admin: 11/01/17 09:13 Dose: 1 mg Guaifenesin (Robitussin) 100 mg PO Q4H PRN PRN Reason: Cough Hydromorphone HCl (Dilaudid) 0.5 mg IVP Q4H PRN PRN Reason: Pain, severe (8-10) Last Admin: 11/01/17 12:06 Dose: 0.5 mg Sodium Chloride (Sodium Chloride 0.9%) 1,000 mls @ 1,000 mls/hr IV .Q1H [facility] Ceftriaxone Sodium (Rocephin 1 Gram Ivpb) 1 gm in 100 mls @ 100 mls/hr IVPB DAILY [facility] PRN Reason: Protocol Vancomycin HCl (Vancomycin 1gm) 1 gm in 250 mls @ 167 mls/hr IVPB Q12H [facility] PRN Reason: Protocol Insulin Human Lispro (Humalog Med) 0 units SC ACHS [facility] PRN Reason: Protocol Last Admin: 11/01/17 12:05 Dose: 1 units Levalbuterol HCl (Xopenex) 1.25 mg IH [id number] PRN PRN Reason: Shortness of Breath Lorazepam (Ativan) 1 mg IVP Q6H PRN; Protocol PRN Reason: Symptoms of alcohol withdrawl Last Admin: 11/01/17 01:27 Dose: 1 mg Lorazepam (Ativan) 2 mg PO Q6H [facility] PRN Reason: Protocol Last Admin: 11/01/17 12:06 Dose: 2 mg Metoprolol Tartrate (Lopressor) 50 mg PO 0800,1800 [facility] Last Admin: 11/01/17 08:20 Dose: 50 mg Multivitamins/Minerals (Therapeutic-M Tab) 1 tab PO 0800 [facility] Last Admin: 11/01/17 09:14 Dose: 1 tab Ondansetron HCl (Zofran Inj) 4 mg IVP Q4H PRN PRN Reason: Nausea/Vomiting Last Admin: 11/01/17 12:05 Dose: 4 mg Pantoprazole Sodium (Protonix Ec Tab) 40 mg PO ACB [facility] Thiamine HCl (Vitamin B1 Tab) 100 mg PO DAILY [facility] Last Admin: 11/01/17 09:13 Dose: 100 mg - Labs Labs: 11/01/17 08:00 11/01/17 08:00 PT 12.2 SECONDS (9.4-12.5) 10/31/17 17:45 INR 1.07 (0.93-1.08) 10/31/17 17:45 APTT 32.5 Seconds (25.1-36.5) 10/31/17 17:45 - Constitutional Appears: Non-toxic, No Acute Distress - Head Exam Head Exam: NORMOCEPHALIC. absent: ATRAUMATIC (Laceration to central inferior forehead approximately 1cm), NORMAL INSPECTION - Eye Exam Eye Exam: Conjunctival injection, EOMI, Periorbital swelling (with associated ecchymosis on left superior orbit), PERRL. absent: Normal appearance, Nystagmus , Scleral icterus Pupil Exam: NORMAL ACCOMODATION, PERRL. absent: Fixed, Irregular, Miosis, Mydriatic, Unequal - ENT Exam ENT Exam: Mucous Membranes Dry - Neck Exam Neck Exam: absent: Full ROM (Limited in sidebending to the left), Lymphadenopathy, Meningismus, Normal Inspection, Tenderness (No TTP), Thyromegaly - Respiratory Exam Respiratory Exam: Wheezes (End expiratory; Trace in upper lung tapia), NORMAL BREATHING PATTERN. absent: Accessory Muscle Use, Chest Wall Tenderness, Decreased Breath Sounds, Clear to Ausculation Bilateral, Prolonged Expiratory Phase, Rales, Rhonchi, Respiratory Distress, Stridor - Cardiovascular Exam Cardiovascular Exam: Irregular Rhythm, +S1, +S2. absent: Bradycardia, Tachycardia, Diastolic murmur, Gallop, REGULAR RHYTHM, JVD, RRR, Rubs, +S4, Murmur - GI/Abdominal Exam GI & Abdominal Exam: Soft, Normal Bowel Sounds. absent: Tenderness - Extremities Exam Extremities Exam: Full ROM, Normal Capillary Refill, Normal Inspection. absent : Calf Tenderness, Joint Swelling, Pedal Edema, Tenderness - Back Exam Back Exam: NORMAL INSPECTION - Neurological Exam Neurological Exam: Alert, Awake, CN II-XII Intact, Oriented x3 - Psychiatric Exam Psychiatric exam: Normal Affect, Normal Mood - Skin Skin Exam: Dry, Intact, Normal Color, Warm Assessment and Plan - Assessment and Plan (Free Text) Assessment: 62 year old male with a past medical history significant for Atrial Fibrillation on Eliquis, HTN, DM2, Vitamin D Deficiency presents for atrial fibrillation with RVR and alcohol intoxication. He was found to have possible osteomyelitis of C6 and right mandibular body on CT cervical spine and CT MF, respectively. He was also found to have a fracture of the right orbit of undetermined acuity. Ophthalmology and ID were consulted and patient is pending MRI's of his OMF and Cervical Spine. Plan: 1. Atrial Fibrillation with RVR -EKG on admission showed atrial fibrillation with RVR at a rate of 119, no ST elevation/depression, and non-specific T-wave changes on the inferior lead -Most recent EKG showed atrial fibrillation at a rate of 89 -S/P Cardizem drip -Continue Lopressor 50mg PO BID -Holding home Eliquis in setting of frequent falls, orbital wall fracture and chronic alcohol use -Continue telemetry monitoring 2. Alcohol Abuse/Withdrawal -Last drink approximately 24 hours ago -Continue IV Ativan 2mg Q6H [facility] and 1mg Q6H PRN -Continue folate, thiamine and multivitamin replenishment -CIWA Assessments Q4H -Fall, Seizure and Aspiration precautions in place 3. Possible Osteomyelitis of C6 and Right Mandibular Body -CT Cervical Spine shows a moderate decrease in height or compression fracture of the C6 vertebral body with focal concavities or erosions with osteomyelitis not excluded -CT Maxillofacial showed sclerotic changes within right mandibular body with chronic osteomyelitis within the differential -MRI Cervical Spine and OMF pending -ESR and CRP elevated -Afebrile and without leukocytosis, tachycardia, tachypnea or lactic acidosis -IV Vancomycin and Rocephin for empiric coverage -ID consulted, all recommendations appreciated 4. Right Orbital Wall Fracture -CT Maxillofacial showed small lamina papyracea fracture of posterior medial right orbital wall -MRI OMF pending -Dilaudid 0.5mg IVP Q4H PRN for pain control -Ophthalmology consulted, all recommendations appreciated 5. Bilateral Proptosis with associated Optic Nerve Thickening -CT Maxillofacial showed bilateral proptosis and optic nerve thickening -Ophthalmology consulted, all recommendations appreciated 6. History of COPD -Continue Brovana, Pulmicort, Xopenex and Robitussin PRN 7. History of DM2 -SSI and Accuchecks ACHS -Carbohydrate Consistent Diet 8. History of Anxiety -Continue home Xanax 9. Transaminitis -Chronically elevated with history of multiple negative hepatitis panels and no use of Tylenol -Likely alcohol related -Avoid hepatotoxic agents -Continue to monitor with daily CMP's GI Prophylaxis: Protonix DVT Prophylaxis: SCD's Patient seen and case discussed with attending, Dr. Erwin. <Elsy Erwin - Last Filed: 11/02/17 12:04> Objective - Vital Signs/Intake and Output Vital Signs (last 24 hours): Temp Pulse Resp BP Pulse Ox 98.1 F 61 16 123/94 H 98 11/02/17 11:49 11/02/17 11:49 11/02/17 11:49 11/02/17 11:49 11/02/17 05:47 Intake and Output: 11/02/17 11/02/17 06:59 18:59 Intake Total 490 Output Total 800 Balance -310 - Medications Medications: Current Medications Alprazolam (Xanax) 0.5 mg PO BID [facility] PRN Reason: Protocol Stop: 11/08/17 10:01 Last Admin: 11/01/17 17:31 Dose: 0.5 mg Arformoterol Tartrate (Brovana) 15 mcg IH [id number] [facility] Last Admin: 11/02/17 07:51 Dose: 15 mcg Artificial Tears (Artificial Tears) 0 ml OU TID [facility] Last Admin: 11/01/17 17:44 Dose: 1 drop Budesonide (Pulmicort Respules) 0.25 mg IH [id number] [facility] Last Admin: 11/02/17 07:51 Dose: 0.25 mg Folic Acid (Folic Acid) 1 mg PO DAILY [facility] Last Admin: 11/01/17 09:13 Dose: 1 mg Guaifenesin (Robitussin) 100 mg PO Q4H PRN PRN Reason: Cough Hydromorphone HCl (Dilaudid) 0.5 mg IVP Q4H PRN PRN Reason: Pain, severe (8-10) Last Admin: 11/02/17 09:31 Dose: 0.5 mg Ceftriaxone Sodium (Rocephin 1 Gram Ivpb) 1 gm in 100 mls @ 100 mls/hr IVPB DAILY [facility] PRN Reason: Protocol Vancomycin HCl (Vancomycin 1gm) 1 gm in 250 mls @ 167 mls/hr IVPB Q12H [facility] PRN Reason: Protocol Last Admin: 11/01/17 22:51 Dose: 167 mls/hr Insulin Human Lispro (Humalog Med) 0 units SC ACHS [facility] PRN Reason: Protocol Last Admin: 11/02/17 08:54 Dose: Not Given Levalbuterol HCl (Xopenex) 1.25 mg IH [id number] PRN PRN Reason: Shortness of Breath Lorazepam (Ativan) 1 mg IVP Q6H PRN; Protocol PRN Reason: Symptoms of alcohol withdrawl Last Admin: 11/02/17 00:32 Dose: 1 mg Lorazepam (Ativan) 2 mg PO Q6H [facility] PRN Reason: Protocol Last Admin: 11/02/17 05:24 Dose: 2 mg Metoprolol Tartrate (Lopressor) 50 mg PO 0800,1800 [facility] Last Admin: 11/02/17 08:53 Dose: 50 mg Multivitamins/Minerals (Therapeutic-M Tab) 1 tab PO 0800 [facility] Last Admin: 11/02/17 08:53 Dose: 1 tab Ondansetron HCl (Zofran Inj) 4 mg IVP Q4H PRN PRN Reason: Nausea/Vomiting Last Admin: 11/01/17 12:05 Dose: 4 mg Pantoprazole Sodium (Protonix Ec Tab) 40 mg PO ACB [facility] Last Admin: 11/02/17 08:53 Dose: 40 mg Thiamine HCl (Vitamin B1 Tab) 100 mg PO DAILY [facility] Last Admin: 11/01/17 09:13 Dose: 100 mg Tobramycin Sulfate (Tobrex 0.3% Ophth Soln) 1 drop OS QID [facility] Last Admin: 11/01/17 22:51 Dose: 1 drop - Labs Labs: 11/02/17 05:30 11/02/17 05:30 PT 12.2 SECONDS (9.4-12.5) 10/31/17 17:45 INR 1.07 (0.93-1.08) 10/31/17 17:45 APTT 32.5 Seconds (25.1-36.5) 10/31/17 17:45 Attending/Attestation - Attestation I have personally seen and examined this patient.: Yes I have fully participated in the care of the patient.: Yes I have reviewed all pertinent clinical information, including history, physical exam and plan: Yes Notes (Text): 11/02/17 11:58 Medical record note made by the resident after discussion with my direction and input after the patient was personally seen and examined by me. I have reviewed the chart and agree that the record accurately reflects by personal performance of the history, physical exam, data review, and medical decision-making, in the course for the patient. I have also personally directed the plan of care. 62 year old male with a past medical history significant for Atrial Fibrillation on Eliquis, HTN, DM2, and alcohol abuse was admitted with H/O fall , alcohol intoxication, he was found to have atrial fibrillation with RVR , orbital fracture and possible osteomyelitis of C6 and right mandibular body on CT cervical spine and CT Maxilofacail.He is also found to have elevated LFT. We will monitor patient for alcohol withdrawal.Heart rate is better controlled.Anticoagulation is on hold. We will get MRI of orbit and face.We will continue IV antibiotics and will get Ophthalmology evaluation. Management plan was discussed in detail with patient. Education was provided. Issue of ongoing alcohol abuse was discussed in detail with him.
[2017-11-01] MEDS: Vancomycin 1gm in NS 250ml 1 GM/250 ML BAG IVPB SCH ×2 (15:12→22:51)
[2017-11-01] MEDS: Tobramycin 0.3% OPHT SOLN OS SCH ×2 (17:32→22:51)
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
[2017-11-02] MEDS: HYDROmorphone 0.5 mg/0.5 ml ISec IVP PRN ×6 (00:31→21:42)
--- NOTE | 2017-11-02 00:33 | CON ---
DATE: HISTORY OF PRESENT ILLNESS: Mr. Black is a 62-year-old white male admitted to the [facility] for orbital fracture in his left eye. I was called on consultation to examine his optic nerve. PAST MEDICAL HISTORY: He has just had cataract surgery in both eyes done within the last month. PHYSICAL EXAMINATION: EYES: His vision was 20/40 in both eyes. Corneal exam revealed a small corneal abrasion in the left eye. Conjunctiva showed a subconjunctival hemorrhage in the left eyelid. Adnexal exam showed ecchymosis in left upper and left lower lid. Lens exam showed a well-placed pseudophakos in both eyes. Extraocular movement exam was normal. Dilated fundus exam was normal. IMPRESSION AND PLAN: My assessment is that Mr. Black has an orbital fracture in his left eye and a corneal abrasion in the left eye. 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 Rashaun Frye MD
[2017-11-02 06:31] LABS: BASO # 0.02 K/mm3 (0.0-2.0); BASO % 0.5 % (0.0-3.0); EOS # 0.1 (0.0-0.7); EOS % 1.4 % (1.5-5.0); GRAN # 2.16 (1.4-6.5); GRAN % 49.5 % (50.0-68.0); HEMOGLOBIN 13.6 g/dL (14.0-18.0); LYMPH # 1.8 (1.2-3.4); LYMPH % 41.5 % (22.0-35.0); MEAN CELL VOLUME 104.5 fl (80.0-105.0); MEAN CORPUSCULAR HGB CONC 32.5 g/dl (31.0-37.0); MEAN PLATELET VOLUME 11.4 fl (7.0-11.0); MONO # 0.3 (0.1-0.6); MONO % 7.1 % (1.0-6.0); RED CELL DISTRIBUTION WIDTH 15.3 % (11.5-14.5); WHITE BLOOD COUNT 4.4 10^3/ul (4.5-11.0)
[2017-11-02] MEDS ORDERED: Magnesium Sulfate 2 GM in Sodium Chloride 0.9% 100 ML IVPB ONE (06:47)
[2017-11-02 07:05] LABS: ALB/GLOB RATIO 1.2 (1.1-1.8); ALBUMIN 3.7 g/dL (3.0-4.8); ALT/SGPT 91 U/L (7-56); AST/SGOT 120 U/L (17-59); BLOOD UREA NITROGEN 7 mg/dL (7-21); CALCIUM 9.1 mg/dL (8.4-10.5); GFR AFRICAN-AMERICAN > 60; GFR NON-AFRICAN AMERICAN > 60
[2017-11-02] MEDS ORDERED: Potassium Chloride 20 mEq ER Tab PO STA (07:06)
[2017-11-02] MEDS: Budesonide 0.25 mg/2 ml Inhal Susp UD IH SCH ×2 (07:51→19:43)
[2017-11-02] MEDS: Arformoterol 15 mcg/2 ml Inh Sol IH SCH ×2 (07:51→19:43)
[2017-11-02] MEDS: Multivitamin With Minerals Tab PO SCH (08:53)
[2017-11-02] MEDS: Pantoprazole 40 mg EC Tab PO SCH (08:53)
[2017-11-02] MEDS: Insulin Lispro (humaLOG) MEDIUM Coverage SC SCH ×4 (08:54→22:16)
--- NOTE | 2017-11-02 11:10 | MRI ---
PROCEDURE: MR CERVICAL SPINE WITHOUT CONTRAST HISTORY: rule out osteomyelitis COMPARISON: None available. TECHNIQUE: Multiecho multiplanar sequences were performed through the cervical spine without the use of intravenous contrast. Images were degraded by motion artifact FINDINGS: Normal lordotic curvature. Craniocervical junction unremarkable. Vertebral body heights preserved. No marrow signal abnormality. Normal cervical cord. No paraspinal abnormality. C2-C3: No disc herniation, spinal canal stenosis or neural foraminal narrowing. C3-C4: No disc herniation, spinal canal stenosis or neural foraminal narrowing. C4-C5: No disc herniation, spinal canal stenosis or neural foraminal narrowing. C5-C6: There has been fusion of the posterior elements from C5 through C7. There is a wire in place through the spinous processes C6-C7: No disc herniation, spinal canal stenosis or neural foraminal narrowing. C7-T1: No disc herniation, spinal canal stenosis or neural foraminal narrowing. OTHER FINDINGS: None. IMPRESSION: There has been fusion of the posterior elements from C5 through C7. There is a wire in place through the spinous processes. There is no evidence of osteomyelitis
[2017-11-02] MEDS: Aritificial Tears (15ml) OU SCH ×3 (12:02→19:31)
[2017-11-02] MEDS: cefTRIAXone 1 gm 1 GM/100 ML BAG IVPB SCH (12:05)
[2017-11-02] MEDS: Tobramycin 0.3% OPHT SOLN OS SCH ×4 (12:06→21:36)
--- NOTE | 2017-11-02 13:45 | CP.PCM.PN ---
<Logan Rodriguez - Last Filed: 11/02/17 13:11> Subjective - Date & Time of Evaluation Date of Evaluation: 11/02/17 Time of Evaluation: 13:11 - Subjective Subjective: Medicine Progress Note: Patient seen and assessed at bedside. No acute events overnight noted by patient or nursing staff. Patient reports his pain medication reduces his neck pain from a 10/10 to 4/10. Patient states that he is currently pain free. He denies fever, chills, headache, changes in his vision, chest pain, palpitations , SOB, wheezing, abdominal pain, N/V/D/C, urinary symptoms, skin changes or any numbness/tingling/weakness of any extremity. Objective - Vital Signs/Intake and Output Vital Signs (last 24 hours): Temp Pulse Resp BP Pulse Ox 98.1 F 61 16 123/94 H 98 11/02/17 11:49 11/02/17 11:49 11/02/17 11:49 11/02/17 11:49 11/02/17 05:47 Intake and Output: 11/02/17 11/02/17 06:59 18:59 Intake Total 490 Output Total 800 Balance -310 - Medications Medications: Current Medications Alprazolam (Xanax) 0.5 mg PO BID COUNTS INCLUDE 234 BEDS AT THE [facility] PRN Reason: Protocol Stop: 11/08/17 10:01 Last Admin: 11/02/17 12:00 Dose: 0.5 mg Arformoterol Tartrate (Brovana) 15 mcg IH [id number] COUNTS INCLUDE 234 BEDS AT THE [facility] Last Admin: 11/02/17 07:51 Dose: 15 mcg Artificial Tears (Artificial Tears) 0 ml OU TID COUNTS INCLUDE 234 BEDS AT THE [facility] Last Admin: 11/02/17 12:02 Dose: 2 drop Budesonide (Pulmicort Respules) 0.25 mg IH [id number] COUNTS INCLUDE 234 BEDS AT THE [facility] Last Admin: 11/02/17 07:51 Dose: 0.25 mg Folic Acid (Folic Acid) 1 mg PO DAILY COUNTS INCLUDE 234 BEDS AT THE [facility] Last Admin: 11/02/17 12:01 Dose: 1 mg Guaifenesin (Robitussin) 100 mg PO Q4H PRN PRN Reason: Cough Hydromorphone HCl (Dilaudid) 0.5 mg IVP Q4H PRN PRN Reason: Pain, severe (8-10) Last Admin: 11/02/17 09:31 Dose: 0.5 mg Ceftriaxone Sodium (Rocephin 1 Gram Ivpb) 1 gm in 100 mls @ 100 mls/hr IVPB DAILY REGINA PRN Reason: Protocol Last Admin: 11/02/17 12:05 Dose: 100 mls/hr Vancomycin HCl (Vancomycin 1gm) 1 gm in 250 mls @ 167 mls/hr IVPB Q12H REGINA PRN Reason: Protocol Last Admin: 11/01/17 22:51 Dose: 167 mls/hr Insulin Human Lispro (Humalog Med) 0 units SC ACHS REGINA PRN Reason: Protocol Last Admin: 11/02/17 11:48 Dose: 1 units Levalbuterol HCl (Xopenex) 1.25 mg IH [id number] PRN PRN Reason: Shortness of Breath Lorazepam (Ativan) 1 mg IVP Q6H PRN; Protocol PRN Reason: Symptoms of alcohol withdrawl Last Admin: 11/02/17 00:32 Dose: 1 mg Lorazepam (Ativan) 2 mg PO Q6H REGINA PRN Reason: Protocol Last Admin: 11/02/17 12:03 Dose: 2 mg Metoprolol Tartrate (Lopressor) 50 mg PO 0800,1800 COUNTS INCLUDE 234 BEDS AT THE [facility] Last Admin: 11/02/17 08:53 Dose: 50 mg Multivitamins/Minerals (Therapeutic-M Tab) 1 tab PO 0800 COUNTS INCLUDE 234 BEDS AT THE [facility] Last Admin: 11/02/17 08:53 Dose: 1 tab Ondansetron HCl (Zofran Inj) 4 mg IVP Q4H PRN PRN Reason: Nausea/Vomiting Last Admin: 11/01/17 12:05 Dose: 4 mg Pantoprazole Sodium (Protonix Ec Tab) 40 mg PO ACB COUNTS INCLUDE 234 BEDS AT THE [facility] Last Admin: 11/02/17 08:53 Dose: 40 mg Thiamine HCl (Vitamin B1 Tab) 100 mg PO DAILY COUNTS INCLUDE 234 BEDS AT THE [facility] Last Admin: 11/02/17 12:02 Dose: 100 mg Tobramycin Sulfate (Tobrex 0.3% Oph Soln) 1 drop OS QID COUNTS INCLUDE 234 BEDS AT THE [facility] Last Admin: 11/02/17 12:06 Dose: 1 drop - Labs Labs: 11/02/17 05:30 11/02/17 05:30 PT 12.2 SECONDS (9.4-12.5) 10/31/17 17:45 INR 1.07 (0.93-1.08) 10/31/17 17:45 APTT 32.5 Seconds (25.1-36.5) 10/31/17 17:45 - Constitutional Appears: Non-toxic, No Acute Distress - Head Exam Head Exam: ATRAUMATIC, NORMOCEPHALIC - Eye Exam Eye Exam: Conjunctival injection, EOMI, Periorbital swelling (ecchymosis of left superior orbit), PERRL. absent: Nystagmus, Scleral icterus Pupil Exam: NORMAL ACCOMODATION, PERRL. absent: Fixed, Irregular, Miosis, Mydriatic, Unequal - ENT Exam ENT Exam: Normal Oropharynx - Neck Exam Neck Exam: absent: Lymphadenopathy, Meningismus - Respiratory Exam Respiratory Exam: Wheezes (End expiratory; Trace in upper lung tapia; Improved from previous exam), NORMAL BREATHING PATTERN. absent: Accessory Muscle Use, Chest Wall Tenderness, Decreased Breath Sounds, Clear to Ausculation Bilateral, Prolonged Expiratory Phase, Rales, Rhonchi, Respiratory Distress, Stridor - Cardiovascular Exam Cardiovascular Exam: Irregular Rhythm, +S1, +S2. absent: Bradycardia, Tachycardia, REGULAR RHYTHM, RRR - GI/Abdominal Exam GI & Abdominal Exam: Soft, Normal Bowel Sounds. absent: Firm, Guarding, Tenderness, Rebound - Extremities Exam Extremities Exam: Full ROM, Normal Capillary Refill, Normal Inspection. absent : Calf Tenderness, Joint Swelling, Pedal Edema, Tenderness - Neurological Exam Neurological Exam: Alert, Awake, Oriented x3 - Psychiatric Exam Psychiatric exam: Normal Affect, Normal Mood - Skin Skin Exam: Dry, Intact, Normal Color, Warm Assessment and Plan - Assessment and Plan (Free Text) Assessment: 62 year old male with a past medical history significant for Atrial Fibrillation on Eliquis, HTN, DM2, Vitamin D Deficiency presents for atrial fibrillation with RVR and alcohol intoxication. He was found to have possible osteomyelitis of C6 and right mandibular body on CT cervical spine and CT MF, respectively. He was also found to have a fracture of the right orbit of undetermined acuity. Ophthalmology and ID were consulted and patient is pending MRI's of his OMF and Cervical Spine. Plan: 1. Atrial Fibrillation with RVR -EKG on admission showed atrial fibrillation with RVR at a rate of 119, no ST elevation/depression, and non-specific T-wave changes on the inferior lead -Most recent EKG showed atrial fibrillation at a rate of 89 -S/P Cardizem drip -Continue Lopressor 50mg PO BID -Holding home Eliquis in setting of frequent falls, orbital wall fracture and chronic alcohol use -Continue telemetry monitoring 2. Alcohol Abuse/Withdrawal -Last drink approximately 24 hours ago -Tapered IV Ativan from 2mg Q6H REGINA and 1mg Q6H REGINA -Continue IV Ativan from 1mg Q6H PRN -Continue folate, thiamine and multivitamin replenishment -CIWA assessments Q4H -Fall, Seizure and Aspiration precautions in place 3. Possible Osteomyelitis of C6 and Right Mandibular Body -CT Cervical Spine shows a moderate decrease in height or compression fracture of the C6 vertebral body with focal concavities or erosions with osteomyelitis not excluded -CT Maxillofacial showed sclerotic changes within right mandibular body with chronic osteomyelitis within the differential -MRI Cervical Spine showed no evidence of osteomyelitis -MRI OMF pending -ESR and CRP elevated -Afebrile and without leukocytosis, tachycardia, tachypnea or lactic acidosis -Continue IV Vancomycin and Rocephin (Day 2) for empiric coverage until mandibular osteomyelitis can be ruled out -ID consulted, all recommendations appreciated 4. Right Orbital Wall Fracture -CT Maxillofacial showed small lamina papyracea fracture of posterior medial right orbital wall -MRI OMF pending -Continue Dilaudid 0.5mg IVP Q4H PRN for pain control -Ophthalmology consulted, all recommendations appreciated 5. Bilateral Proptosis with associated Optic Nerve Thickening -CT Maxillofacial showed bilateral proptosis and optic nerve thickening -Ophthalmology consulted, all recommendations appreciated 6. Left Corneal Abrasion -Continue Tobrex Ophthalmic Solution -Ophthalmology consulted, all recommendations appreciated 7. History of COPD -Continue Brovana, Pulmicort, Xopenex and Robitussin PRN 8. History of DM2 -SSI and Accuchecks ACHS -Carbohydrate Consistent Diet 9. History of Anxiety -Continue home Xanax 10. Transaminitis -Improving -Avoid hepatotoxic agents -Continue to monitor with daily CMP's 11. Dyslipidemia -Holding Statin in setting of elevated liver enzymes -Recommended lifestyle changes including low fat diet and aerobic exercise GI Prophylaxis: Protonix DVT Prophylaxis: SCD's Patient seen and case discussed with attending, Dr. Erwin. <Elsy Erwin - Last Filed: 11/02/17 14:18> Objective - Vital Signs/Intake and Output Vital Signs (last 24 hours): Temp Pulse Resp BP Pulse Ox 98.1 F 61 16 123/94 H 98 11/02/17 11:49 11/02/17 11:49 11/02/17 11:49 11/02/17 11:49 11/02/17 05:47 Intake and Output: 11/02/17 11/02/17 06:59 18:59 Intake Total 490 Output Total 800 Balance -310 - Medications Medications: Current Medications Alprazolam (Xanax) 0.5 mg PO BID COUNTS INCLUDE 234 BEDS AT THE [facility] PRN Reason: Protocol Stop: 11/08/17 10:01 Last Admin: 11/02/17 12:00 Dose: 0.5 mg Arformoterol Tartrate (Brovana) 15 mcg IH [id number] COUNTS INCLUDE 234 BEDS AT THE [facility] Last Admin: 11/02/17 07:51 Dose: 15 mcg Artificial Tears (Artificial Tears) 0 ml OU TID COUNTS INCLUDE 234 BEDS AT THE [facility] Last Admin: 11/02/17 12:02 Dose: 2 drop Budesonide (Pulmicort Respules) 0.25 mg IH [id number] COUNTS INCLUDE 234 BEDS AT THE [facility] Last Admin: 11/02/17 07:51 Dose: 0.25 mg Folic Acid (Folic Acid) 1 mg PO DAILY COUNTS INCLUDE 234 BEDS AT THE [facility] Last Admin: 11/02/17 12:01 Dose: 1 mg Guaifenesin (Robitussin) 100 mg PO Q4H PRN PRN Reason: Cough Hydromorphone HCl (Dilaudid) 0.5 mg IVP Q4H PRN PRN Reason: Pain, severe (8-10) Last Admin: 11/02/17 13:49 Dose: 0.5 mg Ceftriaxone Sodium (Rocephin 1 Gram Ivpb) 1 gm in 100 mls @ 100 mls/hr IVPB DAILY COUNTS INCLUDE 234 BEDS AT THE [facility] PRN Reason: Protocol Last Admin: 11/02/17 12:05 Dose: 100 mls/hr Vancomycin HCl (Vancomycin 1gm) 1 gm in 250 mls @ 167 mls/hr IVPB Q12H COUNTS INCLUDE 234 BEDS AT THE [facility] PRN Reason: Protocol Last Admin: 11/01/17 22:51 Dose: 167 mls/hr Insulin Human Lispro (Humalog Med) 0 units SC ACHS COUNTS INCLUDE 234 BEDS AT THE [facility] PRN Reason: Protocol Last Admin: 11/02/17 11:48 Dose: 1 units Levalbuterol HCl (Xopenex) 1.25 mg IH [id number] PRN PRN Reason: Shortness of Breath Lorazepam (Ativan) 1 mg IVP Q6H PRN; Protocol PRN Reason: Symptoms of alcohol withdrawl Last Admin: 11/02/17 00:32 Dose: 1 mg Lorazepam (Ativan) 1 mg PO Q6H REGINA PRN Reason: Protocol Metoprolol Tartrate (Lopressor) 50 mg PO 0800,1800 COUNTS INCLUDE 234 BEDS AT THE [facility] Last Admin: 11/02/17 08:53 Dose: 50 mg Multivitamins/Minerals (Therapeutic-M Tab) 1 tab PO 0800 COUNTS INCLUDE 234 BEDS AT THE [facility] Last Admin: 11/02/17 08:53 Dose: 1 tab Ondansetron HCl (Zofran Inj) 4 mg IVP Q4H PRN PRN Reason: Nausea/Vomiting Last Admin: 11/01/17 12:05 Dose: 4 mg Pantoprazole Sodium (Protonix Ec Tab) 40 mg PO ACB COUNTS INCLUDE 234 BEDS AT THE [facility] Last Admin: 11/02/17 08:53 Dose: 40 mg Thiamine HCl (Vitamin B1 Tab) 100 mg PO DAILY COUNTS INCLUDE 234 BEDS AT THE [facility] Last Admin: 11/02/17 12:02 Dose: 100 mg Tobramycin Sulfate (Tobrex 0.3% [facility]) 1 drop OS QID COUNTS INCLUDE 234 BEDS AT THE [facility] Last Admin: 11/02/17 12:06 Dose: 1 drop - Labs Labs: 11/02/17 05:30 11/02/17 05:30 PT 12.2 SECONDS (9.4-12.5) 10/31/17 17:45 INR 1.07 (0.93-1.08) 10/31/17 17:45 APTT 32.5 Seconds (25.1-36.5) 10/31/17 17:45 Attending/Attestation - Attestation I have personally seen and examined this patient.: Yes I have fully participated in the care of the patient.: Yes I have reviewed all pertinent clinical information, including history, physical exam and plan: Yes Notes (Text): 11/02/17 14:18 Medical record note made by the resident after discussion with my direction and input after the patient was personally seen and examined by me. I have reviewed the chart and agree that the record accurately reflects by personal performance of the history, physical exam, data review, and medical decision-making, in the course for the patient. I have also personally directed the plan of care.
[2017-11-02] MEDS: Vancomycin 1gm in NS 250ml 1 GM/250 ML BAG IVPB SCH ×2 (14:30→23:09)
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
[2017-11-03 00:21] VITALS: RESP 20
[2017-11-03] MEDS: HYDROmorphone 0.5 mg/0.5 ml ISec IVP PRN ×5 (01:54→22:25)
[2017-11-03 06:26] LABS: BASO # 0.04 K/mm3 (0.0-2.0); EOS # 0.1 (0.0-0.7); EOS % 2.4 % (1.5-5.0); GRAN # 2.44 (1.4-6.5); GRAN % 59.2 % (50.0-68.0); HEMOGLOBIN 12.7 g/dL (14.0-18.0); LYMPH # 1.2 (1.2-3.4); LYMPH % 28.4 % (22.0-35.0); MEAN CELL VOLUME 105.8 fl (80.0-105.0); MEAN CORPUSCULAR HEMOGLOBIN 33.7 pg (25.0-35.0); MEAN CORPUSCULAR HGB CONC 31.8 g/dl (31.0-37.0); MEAN PLATELET VOLUME 11.4 fl (7.0-11.0); MONO # 0.4 (0.1-0.6); RBC 3.77 10^6/uL (3.5-6.1); RED CELL DISTRIBUTION WIDTH 15.4 % (11.5-14.5); WHITE BLOOD COUNT 4.1 10^3/ul (4.5-11.0)
[2017-11-03 06:57] LABS: ALB/GLOB RATIO 1.1 (1.1-1.8); ALBUMIN 3.6 g/dL (3.0-4.8); ALT/SGPT 91 U/L (7-56); AST/SGOT 145 U/L (17-59); BLOOD UREA NITROGEN 8 mg/dL (7-21); CALCIUM 9.3 mg/dL (8.4-10.5); GFR AFRICAN-AMERICAN > 60; GFR NON-AFRICAN AMERICAN > 60
[2017-11-03] MEDS: Budesonide 0.25 mg/2 ml Inhal Susp UD IH SCH ×2 (08:00→20:28)
[2017-11-03] MEDS: Arformoterol 15 mcg/2 ml Inh Sol IH SCH ×2 (08:00→20:28)
[2017-11-03] MEDS: Insulin Lispro (humaLOG) MEDIUM Coverage SC SCH ×4 (08:06→23:19)
[2017-11-03] MEDS: Multivitamin With Minerals Tab PO SCH (08:07)
[2017-11-03] MEDS: Pantoprazole 40 mg EC Tab PO SCH (08:07)
[2017-11-03] MEDS: cefTRIAXone 1 gm 1 GM/100 ML BAG IVPB SCH (10:07)
[2017-11-03] MEDS: Tobramycin 0.3% OPHT SOLN OS SCH ×3 (10:07→17:13)
[2017-11-03] MEDS: Aritificial Tears (15ml) OU SCH ×3 (10:08→17:13)
[2017-11-03] MEDS: Vancomycin 1gm in NS 250ml 1 GM/250 ML BAG IVPB SCH ×2 (12:34→22:26)
--- NOTE | 2017-11-03 13:07 | CP.PCM.PN ---
<Logan Rodriguez - Last Filed: 11/03/17 13:03> Subjective - Date & Time of Evaluation Date of Evaluation: 11/03/17 Time of Evaluation: 13:03 - Subjective Subjective: Medicine Progress Note: Patient seen and assessed at bedside. No acute events overnight noted by patient or nursing staff. Brother is at bedside and requests, along with patient , that KISHORE be seriously considered upon discharge. He denies fever, chills, headache, changes in his vision, chest pain, palpitations, SOB, wheezing, abdominal pain, N/V/D/C, urinary symptoms, skin changes or any numbness/tingling /weakness of any extremity. Objective - Vital Signs/Intake and Output Vital Signs (last 24 hours): Temp Pulse Resp BP Pulse Ox 98.8 F 81 20 133/89 96 11/03/17 12:00 11/03/17 12:00 11/03/17 12:00 11/03/17 12:00 11/03/17 06:00 Intake and Output: 11/03/17 11/03/17 06:59 18:59 Intake Total 610 Output Total 950 Balance -340 - Medications Medications: Current Medications Alprazolam (Xanax) 0.5 mg PO BID COUNT INCLUDES [facility] PRN Reason: Protocol Stop: 11/08/17 10:01 Last Admin: 11/03/17 10:08 Dose: 0.5 mg Arformoterol Tartrate (Brovana) 15 mcg IH [id number] COUNT INCLUDES THE [facility] Last Admin: 11/03/17 08:00 Dose: 15 mcg Artificial Tears (Artificial Tears) 0 ml OU TID COUNT INCLUDES THE [facility] Last Admin: 11/03/17 10:08 Dose: 1 drop Budesonide (Pulmicort Respules) 0.25 mg IH [id number] COUNT INCLUDES THE [facility] Last Admin: 11/03/17 08:00 Dose: 0.25 mg Folic Acid (Folic Acid) 1 mg PO DAILY COUNT INCLUDES [facility] Last Admin: 11/03/17 10:08 Dose: 1 mg Guaifenesin (Robitussin) 100 mg PO Q4H PRN PRN Reason: Cough Hydromorphone HCl (Dilaudid) 0.5 mg IVP Q4H PRN PRN Reason: Pain, severe (8-10) Last Admin: 11/03/17 10:08 Dose: 0.5 mg Ceftriaxone Sodium (Rocephin 1 Gram Ivpb) 1 gm in 100 mls @ 100 mls/hr IVPB DAILY [facility] PRN Reason: Protocol Last Admin: 11/03/17 10:07 Dose: 100 mls/hr Vancomycin HCl (Vancomycin 1gm) 1 gm in 250 mls @ 167 mls/hr IVPB Q12H [facility] PRN Reason: Protocol Last Admin: 11/03/17 12:34 Dose: 167 mls/hr Insulin Human Lispro (Humalog Med) 0 units SC ACHS [facility] PRN Reason: Protocol Last Admin: 11/03/17 12:35 Dose: 1 units Levalbuterol HCl (Xopenex) 1.25 mg IH [id number] PRN PRN Reason: Shortness of Breath Lorazepam (Ativan) 1 mg IVP Q6H PRN; Protocol PRN Reason: Symptoms of alcohol withdrawl Last Admin: 11/03/17 05:55 Dose: 1 mg Lorazepam (Ativan) 1 mg PO Q6H [facility] PRN Reason: Protocol Last Admin: 11/03/17 12:35 Dose: 1 mg Metoprolol Tartrate (Lopressor) 50 mg PO 0800,1800 COUNT [facility]CLUDES [facility] Last Admin: 11/03/17 08:07 Dose: 50 mg Multivitamins/Minerals (Therapeutic-M Tab) 1 tab PO 0800 COUNT [facility]CLUDES [facility] Last Admin: 11/03/17 08:07 Dose: 1 tab Ondansetron HCl (Zofran Inj) 4 mg IVP Q4H PRN PRN Reason: Nausea/Vomiting Last Admin: 11/01/17 12:05 Dose: 4 mg Pantoprazole Sodium (Protonix Ec Tab) 40 mg PO ACB COUNT INCLUDES [facility] Last Admin: 11/03/17 08:07 Dose: 40 mg Thiamine HCl (Vitamin B1 Tab) 100 mg PO DAILY COUNT [facility]CLUDES [facility] Last Admin: 11/03/17 10:08 Dose: 100 mg Tobramycin Sulfate (Tobrex 0.3% Ophth Soln) 1 drop OS QID COUNT INCLUDES [facility] Last Admin: 11/03/17 10:07 Dose: 1 drop Tramadol HCl (Ultram) 25 mg PO TID [facility] - Labs Labs: 11/03/17 06:00 11/03/17 06:00 PT 12.2 SECONDS (9.4-12.5) 10/31/17 17:45 INR 1.07 (0.93-1.08) 10/31/17 17:45 APTT 32.5 Seconds (25.1-36.5) 10/31/17 17:45 - Constitutional Appears: Non-toxic, No Acute Distress - Head Exam Head Exam: NORMOCEPHALIC. absent: ATRAUMATIC (1cm healing laceration to medial forehead with no surrounding erythema) - Eye Exam Eye Exam: EOMI, PERRL Pupil Exam: NORMAL ACCOMODATION, PERRL - ENT Exam ENT Exam: Mucous Membranes Moist, Normal Exam - Neck Exam Neck Exam: absent: Lymphadenopathy, Meningismus, Tenderness - Respiratory Exam Respiratory Exam: Clear to Ausculation Bilateral, NORMAL BREATHING PATTERN. absent: Rales, Rhonchi, Wheezes, Respiratory Distress - Cardiovascular Exam Cardiovascular Exam: Irregular Rhythm, +S1, +S2. absent: Bradycardia, Tachycardia, REGULAR RHYTHM, RRR - GI/Abdominal Exam GI & Abdominal Exam: Soft, Normal Bowel Sounds. absent: Firm, Guarding, Rigid, Tenderness, Rebound - Extremities Exam Extremities Exam: Full ROM, Normal Capillary Refill. absent: Calf Tenderness, Joint Swelling, Pedal Edema, Tenderness - Neurological Exam Neurological Exam: Alert, Awake, CN II-XII Intact, Oriented x3 - Psychiatric Exam Psychiatric exam: Normal Affect, Normal Mood - Skin Skin Exam: Dry, Intact, Normal Color, Warm Assessment and Plan - Assessment and Plan (Free Text) Assessment: 62 year old male with a past medical history significant for Atrial Fibrillation on Eliquis, HTN, DM2, Vitamin D Deficiency presents for atrial fibrillation with RVR and alcohol intoxication. He was found to have possible osteomyelitis of C6 and right mandibular body on CT cervical spine and CT MF, respectively. He was also found to have a fracture of the right orbit of undetermined acuity. Ophthalmology and ID were consulted. No evidence of C6 osteomyelitis on MRI of Cervical Spine. Patient is pending MRI OMF to rule out osteomyelitis of mandibular body. PT is recommending either KISHORE or H[facility] upon discharge. Plan: 1. Atrial Fibrillation with RVR -EKG on admission showed atrial fibrillation with RVR at a rate of 119, no ST elevation/depression, and non-specific T-wave changes on the inferior lead -Most recent EKG showed atrial fibrillation at a rate of 89 -S/P Cardizem drip -Continue Lopressor 50mg PO BID -Holding home Eliquis in setting of frequent falls, orbital wall fracture and chronic alcohol use -Continue telemetry monitoring 2. Alcohol Abuse/Withdrawal -Last drink approximately 24 hours ago -Discontinued Ativan 1mg Q6H [facility] -Continue IV Ativan from 1mg Q6H PRN -Continue folate, thiamine and multivitamin replenishment -CIWA assessments Q4H -Fall, Seizure and Aspiration precautions in place 3. Possible Osteomyelitis of C6 and Right Mandibular Body -CT Cervical Spine shows a moderate decrease in height or compression fracture of the C6 vertebral body with focal concavities or erosions with osteomyelitis not excluded -CT Maxillofacial showed sclerotic changes within right mandibular body with chronic osteomyelitis within the differential -MRI Cervical Spine showed no evidence of osteomyelitis -MRI OMF pending -ESR and CRP elevated -Afebrile and without leukocytosis, tachycardia, tachypnea or lactic acidosis -Continue IV Vancomycin and Rocephin (Day 3) for empiric coverage until mandibular osteomyelitis can be ruled out -ID consulted, all recommendations appreciated 4. Right Orbital Wall Fracture -CT Maxillofacial showed small lamina papyracea fracture of posterior medial right orbital wall -MRI OMF pending -Continue Dilaudid 0.5mg IVP Q4H PRN for pain control -Initiated Tramadol 25mg TID for pain control -Ophthalmology consulted, all recommendations appreciated 5. Bilateral Proptosis with associated Optic Nerve Thickening -CT Maxillofacial showed bilateral proptosis and optic nerve thickening -Ophthalmology consulted, all recommendations appreciated 6. Left Corneal Abrasion -Continue Tobrex Ophthalmic Solution -Ophthalmology consulted, all recommendations appreciated 7. History of COPD -Continue Brovana, Pulmicort, Xopenex and Robitussin PRN 8. History of DM2 -SSI and Accuchecks ACHS -Carbohydrate Consistent Diet 9. History of Anxiety -Continue home Xanax 10. Transaminitis -Avoid hepatotoxic agents -Continue to monitor with daily CMP's 11. Dyslipidemia -Holding Statin in setting of elevated liver enzymes -Recommended lifestyle changes including low fat diet and aerobic exercise GI Prophylaxis: Protonix DVT Prophylaxis: SCD's Disposition: PT recommending KISHORE or HWS upon discharge. Patient seen and case discussed with attending, Dr. Erwin. <Elsy Erwin - Last Filed: 11/05/17 15:07> Objective - Vital Signs/Intake and Output Vital Signs (last 24 hours): Temp Pulse Resp BP Pulse Ox 98.8 F 90 20 148/99 H 95 11/05/17 07:30 11/05/17 07:30 11/05/17 07:30 11/05/17 07:30 11/05/17 07:30 Intake and Output: 11/05/17 11/05/17 06:59 18:59 Intake Total 180 480 Output Total 150 Balance 180 330 - Medications Medications: Current Medications Alprazolam (Xanax) 0.5 mg PO BID COUNT INCLUDES [facility] PRN Reason: Protocol Stop: 11/08/17 10:01 Last Admin: 11/05/17 10:05 Dose: 0.5 mg Arformoterol Tartrate (Brovana) 15 mcg IH [id number] COUNT INCLUDES [facility] Last Admin: 11/05/17 07:21 Dose: 15 mcg Artificial Tears (Artificial Tears) 0 ml OU TID COUNT INCLUDES [facility] Last Admin: 11/05/17 10:09 Dose: 1 drop Budesonide (Pulmicort Respules) 0.25 mg IH [id number] COUNT INCLUDES [facility] Last Admin: 11/05/17 07:21 Dose: 0.25 mg Folic Acid (Folic Acid) 1 mg PO DAILY COUNT INCLUDES [facility] Last Admin: 11/04/17 09:44 Dose: 1 mg Guaifenesin (Robitussin) 100 mg PO Q4H PRN PRN Reason: Cough Last Admin: 11/05/17 10:05 Dose: 100 mg Hydromorphone HCl (Dilaudid) 0.5 mg IVP Q4H PRN PRN Reason: Pain, severe (8-10) Last Admin: 11/05/17 10:36 Dose: 0.5 mg Insulin Human Lispro (Humalog Med) 0 units SC ACHS COUNT INCLUDES [facility] PRN Reason: Protocol Last Admin: 11/05/17 10:09 Dose: Not Given Levalbuterol HCl (Xopenex) 1.25 mg IH [id number] PRN PRN Reason: Shortness of Breath Lorazepam (Ativan) 1 mg IVP Q6H PRN; Protocol PRN Reason: Symptoms of alcohol withdrawl Last Admin: 11/05/17 03:22 Dose: 1 mg Metoprolol Tartrate (Lopressor) 50 mg PO 0800,1800 COUNT INCLUDES [facility] Last Admin: 11/05/17 10:06 Dose: 50 mg Multivitamins/Minerals (Therapeutic-M Tab) 1 tab PO 0800 COUNT INCLUDES [facility] Last Admin: 11/05/17 10:05 Dose: 1 tab Ondansetron HCl (Zofran Inj) 4 mg IVP Q4H PRN PRN Reason: Nausea/Vomiting Last Admin: 11/01/17 12:05 Dose: 4 mg Pantoprazole Sodium (Protonix Ec Tab) 40 mg PO ACB COUNT INCLUDES [facility] Last Admin: 11/05/17 10:05 Dose: 40 mg Thiamine HCl (Vitamin B1 Tab) 100 mg PO DAILY COUNT INCLUDES [facility] Last Admin: 11/05/17 10:06 Dose: 100 mg Tobramycin Sulfate (Tobrex 0.3% Ophth Soln) 1 drop OS QID COUNT INCLUDES [facility] Last Admin: 11/05/17 10:10 Dose: 1 drop Tramadol HCl (Ultram) 25 mg PO TID COUNT INCLUDES [facility] Last Admin: 11/05/17 10:48 Dose: Not Given - Labs Labs: 11/05/17 07:00 11/05/17 07:00 PT 12.2 SECONDS (9.4-12.5) 10/31/17 17:45 INR 1.07 (0.93-1.08) 10/31/17 17:45 APTT 32.5 Seconds (25.1-36.5) 10/31/17 17:45 Attending/Attestation - Attestation I have personally seen and examined this patient.: Yes I have fully participated in the care of the patient.: Yes I have reviewed all pertinent clinical information, including history, physical exam and plan: Yes Notes (Text): 11/05/17 15:05 Medical record note made by the resident after discussion with my direction and input after the patient was personally seen and examined by me. I have reviewed the chart and agree that the record accurately reflects by personal performance of the history, physical exam, data review, and medical decision-making, in the course for the patient. I have also personally directed the plan of care. 62 year old male with a past medical history significant for Atrial Fibrillation on Eliquis, HTN, DM2, and alcohol abuse was admitted with H/O fall , alcohol intoxication, he was found to have atrial fibrillation with RVR , orbital fracture and possible osteomyelitis of C6 and right mandibular body on CT cervical spine and CT Maxilofacail.He is also found to have elevated LFT. LFT are coming down. MRI of C spine is negative for Osteomylitis. MRI of orbit and face is pending, we will contin ue IV antibiotics for now.Cultures are negative.ID is following.. Ophthalmology evaluation is appreciated. Management plan was discussed in detail with patient. Education was provided. Issue of ongoing alcohol abuse was discussed in detail with him.
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
[2017-11-04] MEDS: HYDROmorphone 0.5 mg/0.5 ml ISec IVP PRN ×5 (02:22→22:02)
[2017-11-04 06:33] LABS: BASO # 0.05 K/mm3 (0.0-2.0); BASO % 1.2 % (0.0-3.0); EOS # 0.1 (0.0-0.7); EOS % 2.8 % (1.5-5.0); GRAN # 2.09 (1.4-6.5); GRAN % 48.3 % (50.0-68.0); HEMOGLOBIN 12.6 g/dL (14.0-18.0); LYMPH # 1.6 (1.2-3.4); MEAN CELL VOLUME 105.9 fl (80.0-105.0); MEAN CORPUSCULAR HEMOGLOBIN 34.1 pg (25.0-35.0); MEAN CORPUSCULAR HGB CONC 32.1 g/dl (31.0-37.0); MEAN PLATELET VOLUME 11.3 fl (7.0-11.0); MONO # 0.4 (0.1-0.6); MONO % 9.7 % (1.0-6.0); RBC 3.7 10^6/uL (3.5-6.1); RED CELL DISTRIBUTION WIDTH 15.8 % (11.5-14.5); WHITE BLOOD COUNT 4.3 10^3/ul (4.5-11.0)
[2017-11-04 07:06] LABS: ALB/GLOB RATIO 1.2 (1.1-1.8); ALBUMIN 3.8 g/dL (3.0-4.8); ALT/SGPT 87 U/L (7-56); AST/SGOT 123 U/L (17-59); BLOOD UREA NITROGEN 11 mg/dL (7-21); CALCIUM 9.4 mg/dL (8.4-10.5); GFR AFRICAN-AMERICAN > 60; GFR NON-AFRICAN AMERICAN > 60
[2017-11-04] MEDS: Insulin Lispro (humaLOG) MEDIUM Coverage SC SCH ×4 (07:35→21:55)
[2017-11-04] MEDS: Multivitamin With Minerals Tab PO SCH (07:47)
[2017-11-04] MEDS: Pantoprazole 40 mg EC Tab PO SCH (07:47)
[2017-11-04] MEDS: Arformoterol 15 mcg/2 ml Inh Sol IH SCH ×2 (08:00→19:48)
[2017-11-04] MEDS: Budesonide 0.25 mg/2 ml Inhal Susp UD IH SCH ×2 (08:00→19:49)
[2017-11-04] MEDS: guaiFENesin 100 mg/5 ml Syrup UD PO PRN (09:43)
[2017-11-04] MEDS: cefTRIAXone 1 gm 1 GM/100 ML BAG IVPB SCH (09:44)
[2017-11-04] MEDS: Aritificial Tears (15ml) OU SCH ×3 (09:45→17:11)
--- NOTE | 2017-11-04 12:00 | CP.PCM.PN ---
<Logan Rodriguez - Last Filed: 11/04/17 11:56> Subjective - Date & Time of Evaluation Date of Evaluation: 11/04/17 Time of Evaluation: 11:56 - Subjective Subjective: Medicine Progress Note: Patient seen and assessed at bedside. Patient reports that he refused his MRI yesterday because his medications hadn't taken effect when he was brought down for the study to be done. After discussion regarding alternatives to this study , patient is again agreeable to try for another MRI. He has no complaints at this time. He denies fevers, chills, headache, chest pain, SOB, cough, abdominal pain, N/V/D/C, urinary symptoms or any skin changes. Objective - Vital Signs/Intake and Output Vital Signs (last 24 hours): Temp Pulse Resp BP Pulse Ox 97.8 F 89 20 141/96 H 97 11/04/17 06:00 11/04/17 07:45 11/04/17 06:00 11/04/17 07:45 11/04/17 06:00 Intake and Output: 11/04/17 11/04/17 06:59 18:59 Intake Total 490 Output Total 500 Balance -10 - Medications Medications: Current Medications Alprazolam (Xanax) 0.5 mg PO BID [facility] PRN Reason: Protocol Stop: 11/08/17 10:01 Last Admin: 11/04/17 09:46 Dose: 0.5 mg Arformoterol Tartrate (Brovana) 15 mcg IH [id number] [facility] Last Admin: 11/04/17 08:00 Dose: 15 mcg Artificial Tears (Artificial Tears) 0 ml OU TID [facility] Last Admin: 11/04/17 09:45 Dose: 1 drop Budesonide (Pulmicort Respules) 0.25 mg IH [id number] [facility] Last Admin: 11/04/17 08:00 Dose: 0.25 mg Folic Acid (Folic Acid) 1 mg PO DAILY [facility] Last Admin: 11/04/17 09:44 Dose: 1 mg Guaifenesin (Robitussin) 100 mg PO Q4H PRN PRN Reason: Cough Last Admin: 11/04/17 09:43 Dose: 100 mg Hydromorphone HCl (Dilaudid) 0.5 mg IVP Q4H PRN PRN Reason: Pain, severe (8-10) Last Admin: 11/04/17 07:46 Dose: 0.5 mg Ceftriaxone Sodium (Rocephin 1 Gram Ivpb) 1 gm in 100 mls @ 100 mls/hr IVPB DAILY REGINA PRN Reason: Protocol Last Admin: 11/04/17 09:44 Dose: 100 mls/hr Vancomycin HCl (Vancomycin 1gm) 1 gm in 250 mls @ 167 mls/hr IVPB Q12H REGINA PRN Reason: Protocol Last Admin: 11/03/17 22:26 Dose: 167 mls/hr Insulin Human Lispro (Humalog Med) 0 units SC ACHS REGINA PRN Reason: Protocol Last Admin: 11/04/17 07:35 Dose: Not Given Levalbuterol HCl (Xopenex) 1.25 mg IH [id number] PRN PRN Reason: Shortness of Breath Lorazepam (Ativan) 1 mg IVP Q6H PRN; Protocol PRN Reason: Symptoms of alcohol withdrawl Last Admin: 11/04/17 07:46 Dose: 1 mg Metoprolol Tartrate (Lopressor) 50 mg PO 0800,1800 [facility] Last Admin: 11/04/17 07:45 Dose: 50 mg Multivitamins/Minerals (Therapeutic-M Tab) 1 tab PO 0800 [facility] Last Admin: 11/04/17 07:47 Dose: 1 tab Ondansetron HCl (Zofran Inj) 4 mg IVP Q4H PRN PRN Reason: Nausea/Vomiting Last Admin: 11/01/17 12:05 Dose: 4 mg Pantoprazole Sodium (Protonix Ec Tab) 40 mg PO ACB [facility] Last Admin: 11/04/17 07:47 Dose: 40 mg Thiamine HCl (Vitamin B1 Tab) 100 mg PO DAILY [facility] Last Admin: 11/04/17 09:44 Dose: 100 mg Tobramycin Sulfate (Tobrex 0.3% Ophth Soln) 1 drop OS QID [facility] Last Admin: 11/03/17 17:13 Dose: 1 drop Tramadol HCl (Ultram) 25 mg PO TID [facility] Last Admin: 11/04/17 09:43 Dose: 25 mg - Labs Labs: 11/04/17 05:30 11/04/17 05:30 PT 12.2 SECONDS (9.4-12.5) 10/31/17 17:45 INR 1.07 (0.93-1.08) 10/31/17 17:45 APTT 32.5 Seconds (25.1-36.5) 10/31/17 17:45 - Constitutional Appears: Non-toxic, No Acute Distress - Head Exam Head Exam: NORMOCEPHALIC. absent: ATRAUMATIC (1cm laceration to medial forehead ) - Eye Exam Eye Exam: EOMI, PERRL Pupil Exam: NORMAL ACCOMODATION, PERRL - ENT Exam ENT Exam: Mucous Membranes Moist, Normal Exam - Neck Exam Neck Exam: absent: Lymphadenopathy - Respiratory Exam Respiratory Exam: Clear to Ausculation Bilateral, NORMAL BREATHING PATTERN. absent: Rales, Rhonchi, Wheezes, Respiratory Distress - Cardiovascular Exam Cardiovascular Exam: Irregular Rhythm, +S1, +S2. absent: REGULAR RHYTHM, RRR - GI/Abdominal Exam GI & Abdominal Exam: Soft, Normal Bowel Sounds. absent: Distended, Firm, Guarding, Tenderness, Rebound - Extremities Exam Extremities Exam: Full ROM, Normal Capillary Refill, Normal Inspection. absent : Calf Tenderness, Joint Swelling, Pedal Edema, Tenderness - Back Exam Back Exam: NORMAL INSPECTION - Neurological Exam Neurological Exam: Alert, Awake, Oriented x3 - Psychiatric Exam Psychiatric exam: Normal Affect, Normal Mood - Skin Skin Exam: Dry, Intact, Normal Color, Warm Assessment and Plan - Assessment and Plan (Free Text) Assessment: 62 year old male with a past medical history significant for Atrial Fibrillation on Eliquis, HTN, DM2, Vitamin D Deficiency presents for atrial fibrillation with RVR and alcohol intoxication. He was found to have possible osteomyelitis of C6 and right mandibular body on CT cervical spine and CT MF, respectively. He was also found to have a fracture of the right orbit of undetermined acuity. Ophthalmology and ID were consulted. No evidence of C6 osteomyelitis on MRI of Cervical Spine. Patient is pending MRI OMF to rule out osteomyelitis of mandibular body. Patient has not been able to complete this study due to anxiety regarding machine on multiple occasions. After a discussion regarding the alternatives, patient is agreeable to attempt MRI again today. PT is recommending either [facility] or [facility] upon discharge. Patient requests [facility] placement and Social Work was consulted for [facility] placement. Plan: 1. Atrial Fibrillation with RVR -EKG on admission showed atrial fibrillation with RVR at a rate of 119, no ST elevation/depression, and non-specific T-wave changes on the inferior lead -Most recent EKG showed atrial fibrillation at a rate of 89 -S/P Cardizem drip -Continue Lopressor 50mg PO BID -Holding home Eliquis in setting of frequent falls, orbital wall fracture and chronic alcohol use -May resume Eliquis at [facility] -Continue telemetry monitoring 2. Alcohol Abuse/Withdrawal -Last drink approximately 24 hours ago -Continue IV Ativan from 1mg Q6H PRN -Continue folate, thiamine and multivitamin replenishment -CIWA assessments -Fall, Seizure and Aspiration precautions in place 3. Possible Osteomyelitis of Right Mandibular Body -CT Cervical Spine shows a moderate decrease in height or compression fracture of the C6 vertebral body with focal concavities or erosions with osteomyelitis not excluded -CT Maxillofacial showed sclerotic changes within right mandibular body with chronic osteomyelitis within the differential -MRI Cervical Spine showed no evidence of osteomyelitis -MRI OMF pending -ESR and CRP elevated -Afebrile and without leukocytosis, tachycardia, tachypnea or lactic acidosis -Continue IV Vancomycin and Rocephin (Day 4) for empiric coverage until right mandibular body osteomyelitis can be ruled out -ID consulted, all recommendations appreciated 4. Right Orbital Wall Fracture -CT Maxillofacial showed small lamina papyracea fracture of posterior medial right orbital wall -MRI OMF pending -Continue Dilaudid 0.5mg IVP Q4H PRN and Tramadol 25mg TID for pain control -Ophthalmology consulted, all recommendations appreciated 5. Bilateral Proptosis with associated Optic Nerve Thickening -CT Maxillofacial showed bilateral proptosis and optic nerve thickening -Ophthalmology consulted, all recommendations appreciated 6. Left Corneal Abrasion -Continue Tobrex Ophthalmic Solution 7. History of COPD -Continue Brovana, Pulmicort, Xopenex and Robitussin PRN 8. History of DM2 -SSI and Accuchecks ACHS -Carbohydrate Consistent Diet 9. History of Anxiety -Continue home Xanax 10. Transaminitis -Improving -Avoid hepatotoxic agents -Continue to monitor with daily CMP's 11. Dyslipidemia -Holding Statin in setting of elevated liver enzymes -Recommended lifestyle changes including low fat diet and aerobic exercise GI Prophylaxis: Protonix DVT Prophylaxis: SCD's Disposition: PT recommending [facility] or [facility] upon discharge. Patient requests [facility] and SW was consulted for [facility] placement. Patient seen and case discussed with attending, Dr. Erwin. <Irfan,Mohammad - Last Filed: 11/05/17 15:08> Objective - Vital Signs/Intake and Output Vital Signs (last 24 hours): Temp Pulse Resp BP Pulse Ox 98.8 F 90 20 148/99 H 95 11/05/17 07:30 11/05/17 07:30 11/05/17 07:30 11/05/17 07:30 11/05/17 07:30 Intake and Output: 11/05/17 11/05/17 06:59 18:59 Intake Total 180 480 Output Total 150 Balance 180 330 - Medications Medications: Current Medications Alprazolam (Xanax) 0.5 mg PO BID [facility] PRN Reason: Protocol Stop: 11/08/17 10:01 Last Admin: 11/05/17 10:05 Dose: 0.5 mg Arformoterol Tartrate (Brovana) 15 mcg IH [id number] [facility] Last Admin: 11/05/17 07:21 Dose: 15 mcg Artificial Tears (Artificial Tears) 0 ml OU TID [facility] Last Admin: 11/05/17 10:09 Dose: 1 drop Budesonide (Pulmicort Respules) 0.25 mg IH [id number] [facility] Last Admin: 11/05/17 07:21 Dose: 0.25 mg Folic Acid (Folic Acid) 1 mg PO DAILY [facility] Last Admin: 11/04/17 09:44 Dose: 1 mg Guaifenesin (Robitussin) 100 mg PO Q4H PRN PRN Reason: Cough Last Admin: 11/05/17 10:05 Dose: 100 mg Hydromorphone HCl (Dilaudid) 0.5 mg IVP Q4H PRN PRN Reason: Pain, severe (8-10) Last Admin: 11/05/17 10:36 Dose: 0.5 mg Insulin Human Lispro (Humalog Med) 0 units SC ACHS [facility] PRN Reason: Protocol Last Admin: 11/05/17 10:09 Dose: Not Given Levalbuterol HCl (Xopenex) 1.25 mg IH [id number] PRN PRN Reason: Shortness of Breath Lorazepam (Ativan) 1 mg IVP Q6H PRN; Protocol PRN Reason: Symptoms of alcohol withdrawl Last Admin: 11/05/17 03:22 Dose: 1 mg Metoprolol Tartrate (Lopressor) 50 mg PO 0800,1800 [facility] Last Admin: 11/05/17 10:06 Dose: 50 mg Multivitamins/Minerals (Therapeutic-M Tab) 1 tab PO 0800 [facility] Last Admin: 11/05/17 10:05 Dose: 1 tab Ondansetron HCl (Zofran Inj) 4 mg IVP Q4H PRN PRN Reason: Nausea/Vomiting Last Admin: 11/01/17 12:05 Dose: 4 mg Pantoprazole Sodium (Protonix Ec Tab) 40 mg PO ACB [facility] Last Admin: 11/05/17 10:05 Dose: 40 mg Thiamine HCl (Vitamin B1 Tab) 100 mg PO DAILY [facility] Last Admin: 11/05/17 10:06 Dose: 100 mg Tobramycin Sulfate (Tobrex 0.3% Ophth Soln) 1 drop OS QID [facility] Last Admin: 11/05/17 10:10 Dose: 1 drop Tramadol HCl (Ultram) 25 mg PO TID [facility] Last Admin: 11/05/17 10:48 Dose: Not Given - Labs Labs: 11/05/17 07:00 11/05/17 07:00 PT 12.2 SECONDS (9.4-12.5) 10/31/17 17:45 INR 1.07 (0.93-1.08) 10/31/17 17:45 APTT 32.5 Seconds (25.1-36.5) 10/31/17 17:45 Attending/Attestation - Attestation I have personally seen and examined this patient.: Yes I have fully participated in the care of the patient.: Yes I have reviewed all pertinent clinical information, including history, physical exam and plan: Yes Notes (Text): Medical record note made by the resident after discussion with my direction and input after the patient was personally seen and examined by me. I have reviewed the chart and agree that the record accurately reflects by personal performance of the history, physical exam, data review, and medical decision-making, in the course for the patient. I have also personally directed the plan of care.
[2017-11-04] MEDS: Vancomycin 1gm in NS 250ml 1 GM/250 ML BAG IVPB SCH ×2 (12:19→23:14)
[2017-11-04] MEDS: Tobramycin 0.3% OPHT SOLN OS SCH ×4 (12:20→21:55)
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
--- NOTE | 2017-11-04 21:14 | MRI ---
EXAM: MR Orbits/Face/Neck Without Intravenous Contrast EXAM DATE/TIME: 11/04/2017 12:47 PM CLINICAL HISTORY: The patient age is 62 years old and is male; Injury or trauma; Fall; Initial encounter; Fracture, stress; Closed fracture; Mandible and orbital floor; Injury date: Few days; Patient HX: Limited study. Patient moving a lot. Patient fell. History of orbital fracture. As per patient whole face was in pain. Jairo fofana; Additional info: R/O osteo of r mandibular body Facility exam id and description: Mri o f n w/o orbit, face neck w/o contrast TECHNIQUE: Multiplanar magnetic resonance images of the orbits/face/neck without intravenous contrast. COMPARISON: MR - SPINAL CANAL CERVICAL W/O CONT 2017-11-02 10:11 FINDINGS: Artifacts: The study is significantly limited by motion artifact. Artifact limits evaluation of the cervical spinal canal. Nasopharynx: Evaluation of the pharynx and larynx is significantly limited by motion artifact. Oropharynx: See above. Hypopharynx: See above. Larynx: See above. Retropharyngeal space: Limited by artifact. Submandibular/parotid glands: The parotid and submandibular glands are symmetric in size, without significant swelling. Thyroid: No discrete thyroid nodule or mass is visualized. Bones/joints: Evaluation of the bone marrow of the mandible is significantly limited on this study although no definitive acute marrow edema is visualized. There is a small lamina papyracea fracture again visualized of the medial right orbital wall posteriorly. There is slight reversal of the lordotic curvature of the cervical spine. Vasculature: Suboptimal evaluation. Lymph nodes: There is no significant lymphadenopathy within the soft tissues of the neck. Orbits: There is bilateral proptosis. Evaluation of the optic nerves is suboptimal due to motion artifact. Bilateral orbital lens implants are identified. No definitive acute retrobulbar edema is visualized within the orbits. Other findings: There is moderate prominence of the visualized ventricles and sulci, consistent with moderate cerebral atrophy. There is magnetic susceptibility associated with postoperative change/fusion of the posterior elements, extending from C5-C7. There is mild mucosal thickening of the right maxillary sinus. IMPRESSION: 1. Evaluation of the bone marrow of the mandible is significantly limited on this study although no definitive acute marrow edema is visualized. 2. There is bilateral proptosis. Evaluation of the optic nerves is suboptimal due to motion artifact. 3. There is a small lamina papyracea fracture again visualized of the medial right orbital wall posteriorly. No definitive acute retrobulbar edema is visualized within the orbits. 4. Due to the significant limitations of the study, a repeat MRI with/without contrast is recommended, as clinically indicated. 5. Additional findings described above.
[2017-11-05] MEDS: HYDROmorphone 0.5 mg/0.5 ml ISec IVP PRN ×5 (02:02→18:06)
[2017-11-05] MEDS: Budesonide 0.25 mg/2 ml Inhal Susp UD IH SCH (07:21)
[2017-11-05] MEDS: Arformoterol 15 mcg/2 ml Inh Sol IH SCH (07:21)
[2017-11-05 07:25] LABS: BASO # 0.03 K/mm3 (0.0-2.0); BASO % 0.6 % (0.0-3.0); EOS # 0.1 (0.0-0.7); EOS % 2.9 % (1.5-5.0); GRAN # 2.54 (1.4-6.5); GRAN % 52.5 % (50.0-68.0); HEMOGLOBIN 12.7 g/dL (14.0-18.0); LYMPH # 1.6 (1.2-3.4); MEAN CELL VOLUME 105.9 fl (80.0-105.0); MEAN CORPUSCULAR HEMOGLOBIN 33.9 pg (25.0-35.0); MEAN PLATELET VOLUME 11.8 fl (7.0-11.0); MONO # 0.6 (0.1-0.6); RBC 3.75 10^6/uL (3.5-6.1); WHITE BLOOD COUNT 4.8 10^3/ul (4.5-11.0)
[2017-11-05 07:36] LABS: ALB/GLOB RATIO 1.2 (1.1-1.8); ALBUMIN 3.7 g/dL (3.0-4.8); ALT/SGPT 97 U/L (7-56); AST/SGOT 126 U/L (17-59); BLOOD UREA NITROGEN 9 mg/dL (7-21); CALCIUM 9.3 mg/dL (8.4-10.5); GFR AFRICAN-AMERICAN > 60; GFR NON-AFRICAN AMERICAN > 60
[2017-11-05] MEDS: guaiFENesin 100 mg/5 ml Syrup UD PO PRN (10:05)
[2017-11-05] MEDS: Multivitamin With Minerals Tab PO SCH (10:05)
[2017-11-05] MEDS: Pantoprazole 40 mg EC Tab PO SCH (10:05)
[2017-11-05] MEDS: cefTRIAXone 1 gm 1 GM/100 ML BAG IVPB SCH (10:06)
[2017-11-05] MEDS: Aritificial Tears (15ml) OU SCH (10:09)
[2017-11-05] MEDS: Insulin Lispro (humaLOG) MEDIUM Coverage SC SCH ×2 (10:09→18:07)
[2017-11-05] MEDS: Tobramycin 0.3% OPHT SOLN OS SCH ×3 (10:10→18:08)
[2017-11-05] MEDS: Vancomycin 1gm in NS 250ml 1 GM/250 ML BAG IVPB SCH (10:44)
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
[2017-11-05 15:39] VITALS: BP 139/92; PULSE 82; TEMP 97.9; O2SAT 94
--- NOTE | 2017-11-05 18:41 | CP.PCM.DIS ---
<Logan Rodriguez - Last Filed: 11/05/17 18:29> Provider - Provider Date of Admission: 10/31/17 20:46 Attending physician: Elsy Erwin MD Primary care physician: NO PRIMARY CARE PROVIDER Consults: Ophthalmology: Uday ID: Go Time Spent in preparation of Discharge (in minutes): 43 Hospital Course - Lab Results Lab Results: Micro Results 10/31/17 21:00 Blood-Venous Blood Culture - Preliminary NO GROWTH AFTER 4 DAYS Most Recent Lab Values WBC 4.8 10^3/ul (4.5-11.0) 11/05/17 07:00 RBC 3.75 10^6/uL (3.5-6.1) 11/05/17 07:00 Hgb 12.7 g/dL (14.0-18.0) L 11/05/17 07:00 Hct 39.7 % (42.0-52.0) L 11/05/17 07:00 MCV 105.9 fl (80.0-105.0) H 11/05/17 07:00 MCH 33.9 pg (25.0-35.0) 11/05/17 07:00 MCHC 32.0 g/dl (31.0-37.0) 11/05/17 07:00 RDW 16.0 % (11.5-14.5) H 11/05/17 07:00 Plt Count 67 10^3/uL (120.0-450.0) L 11/05/17 07:00 MPV 11.8 fl (7.0-11.0) H 11/05/17 07:00 Gran % 52.5 % (50.0-68.0) 11/05/17 07:00 Lymph % (Auto) 32.0 % (22.0-35.0) 11/05/17 07:00 [place] % (Auto) 12.0 % (1.0-6.0) H 11/05/17 07:00 Eos % (Auto) 2.9 % (1.5-5.0) 11/05/17 07:00 Baso % (Auto) 0.6 % (0.0-3.0) 11/05/17 07:00 Gran # 2.54 (1.4-6.5) 03/09/18 07:00 Lymph # (Auto) 1.6 (1.2-3.4) 11/05/17 07:00 [place] # (Auto) 0.6 (0.1-0.6) 11/05/17 07:00 Eos # (Auto) 0.1 (0.0-0.7) 11/05/17 07:00 Baso # (Auto) 0.03 K/mm3 (0.0-2.0) 11/05/17 07:00 ESR 33 mm/hr (0.00-15.0) H 10/31/17 18:30 PT 12.2 SECONDS (9.4-12.5) 10/31/17 17:45 INR 1.07 (0.93-1.08) 10/31/17 17:45 APTT 32.5 Seconds (25.1-36.5) 10/31/17 17:45 Sodium 140 mmol/L (132-148) 11/05/17 07:00 Potassium 3.6 mmol/L (3.6-5.0) 11/05/17 07:00 Chloride 102 mmol/L (98-107) 11/05/17 07:00 Carbon Dioxide 28 mmol/L (21-33) 11/05/17 07:00 Anion Gap 14 (10-20) 11/05/17 07:00 BUN 9 mg/dL (7-21) 11/05/17 07:00 Creatinine 0.7 mg/dl (0.8-1.5) L 11/05/17 07:00 Est GFR ( Amer) > 60 11/05/17 07:00 Est GFR (Non-Af Amer) > 60 11/05/17 07:00 POC Glucose (mg/dL) 171 mg/dL (65-110) H 11/05/17 16:10 Random Glucose 132 mg/dL (70-110) H 11/05/17 07:00 Hemoglobin A1c 7.6 % (4.2-6.5) H 10/31/17 18:30 Calcium 9.3 mg/dL (8.4-10.5) 11/05/17 07:00 Phosphorus 3.4 mg/dL (2.5-4.5) 11/05/17 07:00 Magnesium 1.7 mg/dL (1.7-2.2) 11/05/17 07:00 Total Bilirubin 1.5 mg/dL (0.2-1.3) H 11/05/17 07:00 AST 126 U/L (17-59) H 11/05/17 07:00 ALT 97 U/L (7-56) H 11/05/17 07:00 Alkaline Phosphatase 74 U/L (38-126) 11/05/17 07:00 Lactate Dehydrogenase 1120 U/L (333-699) H 10/31/17 17:45 Total Creatine Kinase 180 U/L (35-230) 10/31/17 17:45 Troponin I < 0.01 ng/mL 10/31/17 17:45 C-React Prot High Sens 10.00 mg/L (1.00-3.00) H 10/31/17 18:30 NT-Pro-B Natriuret Pep 194 pg/mL (0-450) 10/31/17 17:45 Total Protein 6.8 g/dL (5.8-8.3) 11/05/17 07:00 Albumin 3.7 g/dL (3.0-4.8) 11/05/17 07:00 Globulin 3.2 gm/dL 11/05/17 07:00 Albumin/Globulin Ratio 1.2 (1.1-1.8) 11/05/17 07:00 Triglycerides 186 mg/dL (35-160) H 10/31/17 17:45 Cholesterol 230 mg/dL (130-200) H 10/31/17 17:45 LDL Cholesterol Direct 169 mg/dL (0-129) H 10/31/17 17:45 HDL Cholesterol 54 mg/dL (29-60) 10/31/17 17:45 Urine Color Yellow (YELLOW) 11/01/17 02:00 Urine Appearance Sl cloudy (CLEAR) 11/01/17 02:00 Urine pH 6.0 (4.7-8.0) 11/01/17 02:00 Ur Specific [place] 1.025 (1.005-1.035) 11/01/17 02:00 Urine Protein 30 mg/dL (<30 mg/dL) H 11/01/17 02:00 Urine Glucose (UA) 100 mg/dL (NEGATIVE) H 11/01/17 02:00 Urine Ketones 15 mg/dL (NEGATIVE) H 11/01/17 02:00 Urine Blood Trace-intact (NEGATIVE) H 11/01/17 02:00 Urine Nitrate Negative (NEGATIVE) 11/01/17 02:00 Urine Bilirubin Negative (NEGATIVE) 11/01/17 02:00 Urine Urobilinogen 2.0 E.U./dL (<1 E.U./dL) H 11/01/17 02:00 Ur Leukocyte Esterase Negative Anival/uL (NEGATIVE) 11/01/17 02:00 Urine RBC 0 - 2 /hpf (0-2) 11/01/17 02:00 Urine WBC 0 - 2 /hpf (0-6) 11/01/17 02:00 Ur Epithelial Cells 0 - 2 /hpf (0-5) 11/01/17 02:00 Salicylates < 1 mg/dL (2.0-20.0) L 10/31/17 17:50 Urine Opiates Screen Negative (NEGATIVE) 10/31/17 20:40 Urine Methadone Screen Negative (NEGATIVE) 10/31/17 20:40 Acetaminophen < 10.0 ug/ml (10.0-20.0) L 10/31/17 17:50 Ur Barbiturates Screen Negative (NEGATIVE) 10/31/17 20:40 Ur Phencyclidine Scrn Negative (NEGATIVE) 10/31/17 20:40 Ur Amphetamines Screen Negative (NEGATIVE) 10/31/17 20:40 U Benzodiazepines Scrn Negative (NEGATIVE) 10/31/17 20:40 U Oth Cocaine Metabols Negative (NEGATIVE) 10/31/17 20:40 U Cannabinoids Screen Negative (NEGATIVE) 10/31/17 20:40 Alcohol, Quantitative 401 mg/dL (0-10) H* 10/31/17 17:50 - Hospital Course Hospital Course: 62 year old male with a past medical history significant for Atrial Fibrillation on Eliquis, HTN, DM2, Vitamin D Deficiency presents for atrial fibrillation with RVR and alcohol intoxication after his brother found him laying on the floor acutely intoxicated with alcohol. EKG on admission showed atrial fibrillation with RVR at a rate of 119, no ST elevation/depression, and non-specific T-wave changes on the inferior lead He was initially started on Cardizem drip and this was replaced with PO Lopressor after rate was controlled. Home Eliquis was held in setting of orbital wall fracture, mentioned later, and frequent falls related to alcoholism. Patient was started on standing and PRN orders of Ativan and monitored with [facility] assessments for alcohol withdrawal. He was eventually weened off of standing Ativan. Folate, MV and thiamine supplementations were provided daily. He was found to have possible osteomyelitis of C6 and right mandibular body as well as bilateral proptosis on CT cervical spine and CT MF, respectively. He was also found to have a fracture of the right orbit of undetermined acuity on CT MF. Ophthalmology and ID were consulted. Patient was started on IV Dilaudid PRN for pain control. Patient was started on Tobrex by ophthalmology after he was found to have a left corneal abrasion. Patient was started on IV Vancomycin and Rocephin for empiric coverage. MRI Cervical Spine and MRI OMF ordered and showed no evidence of osteo in either of the two aforementioned regions. Patient had difficulty completing these studies due to anxiety regarding machine on multiple occasions. He was started on Brovana, Pulmicort, Xopenex and Robitussin PRN for his COPD. He was started on SSI, Accuchecks ACHS and Carbohydrate Consistent Diet for his DM2. Home xanax was started for anxiety. He was found to have elevated lipids, LDL and total cholesterol on lipid panel but was not started on statin as patient had elevated LFT's. PT recommended either [facility] or [facility] upon discharge. Patient requested [facility] placement and Social Work was consulted for [facility] placement. Patient was discharged to [facility] on 11/05/17 to [facility]. - Date & Time of H&P Date of H&P: 10/31/17 Time of H&P: 23:14 Discharge Exam - Head Exam Head Exam: ATRAUMATIC, NORMOCEPHALIC - Eye Exam Eye Exam: EOMI, PERRL Pupil Exam: NORMAL ACCOMODATION, PERRL Additional comments: Healing ecchymosis to superior left orbit - Neck Exam Additional comments: Limited ROM in sidebending to the left (reported to be chronic by patient) - Respiratory Exam Respiratory Exam: NORMAL BREATHING PATTERN, UNREMARKABLE - Cardiovascular Exam Cardiovascular Exam: Irregular Rhythm, +S1, +S2. absent: Bradycardia, Tachycardia, Clicks, Diastolic murmur, Gallop, REGULAR RHYTHM, JVD, RRR, Rubs, + S4, Systolic Murmur - GI/Abdominal Exam GI & Abdominal Exam: Normal Bowel Sounds, Soft, Unremarkable. absent: Distended , Firm, Tenderness - Extremities Exam Extremities exam: full ROM, normal capillary refill, normal inspection, pedal pulses present - Neurological Exam Neurological exam: Alert, Oriented x3 - Psychiatric Exam Psychiatric exam: Normal Affect, Normal Mood - Skin Skin Exam: Dry, Intact, Normal Color, Warm Discharge Plan - Follow Up Plan Condition: STABLE Disposition: TRANSF TO [facility] Instructions: Atrial Fibrillation (DC), Alcohol Abuse and Alcoholism (DC), Skull and Facial Fractures (DC) Additional Instructions: Please follow up with your primary care physician within one week of discharge from [facility] Please continue efforts with alcohol cessation Please continue all medications in [facility] Please take all medications as prescribed If your symptoms worsen or persist, please seek emergency medical attention Referrals: PCP,NO [Primary Care Provider] - <Elsy Erwin - Last Filed: 11/06/17 12:00> Provider - Provider Date of Admission: 10/31/17 20:46 Attending physician: Elsy Erwin MD Primary care physician: NO PRIMARY CARE PROVIDER Hospital Course - Lab Results Lab Results: Micro Results 10/31/17 21:00 Blood-Venous Blood Culture - Final NO GROWTH AFTER 5 DAYS 10/31/17 21:00 Blood-Venous Gram Stain - Final TEST NOT PERFORMED Most Recent Lab Values WBC 4.8 10^3/ul (4.5-11.0) 11/05/17 07:00 RBC 3.75 10^6/uL (3.5-6.1) 11/05/17 07:00 Hgb 12.7 g/dL (14.0-18.0) L 11/05/17 07:00 Hct 39.7 % (42.0-52.0) L 11/05/17 07:00 MCV 105.9 fl (80.0-105.0) H 11/05/17 07:00 MCH 33.9 pg (25.0-35.0) 11/05/17 07:00 MCHC 32.0 g/dl (31.0-37.0) 11/05/17 07:00 RDW 16.0 % (11.5-14.5) H 11/05/17 07:00 Plt Count 67 10^3/uL (120.0-450.0) L 11/05/17 07:00 MPV 11.8 fl (7.0-11.0) H 11/05/17 07:00 Gran % 52.5 % (50.0-68.0) 11/05/17 07:00 Lymph % (Auto) 32.0 % (22.0-35.0) 11/05/17 07:00 [place] % (Auto) 12.0 % (1.0-6.0) H 11/05/17 07:00 Eos % (Auto) 2.9 % (1.5-5.0) 11/05/17 07:00 Baso % (Auto) 0.6 % (0.0-3.0) 11/05/17 07:00 Gran # 2.54 (1.4-6.5) 11/05/17 07:00 Lymph # (Auto) 1.6 (1.2-3.4) 11/05/17 07:00 [place] # (Auto) 0.6 (0.1-0.6) 11/05/17 07:00 Eos # (Auto) 0.1 (0.0-0.7) 11/05/17 07:00 Baso # (Auto) 0.03 K/mm3 (0.0-2.0) 11/05/17 07:00 ESR 33 mm/hr (0.00-15.0) H 10/31/17 18:30 PT 12.2 SECONDS (9.4-12.5) 10/31/17 17:45 INR 1.07 (0.93-1.08) 10/31/17 17:45 APTT 32.5 Seconds (25.1-36.5) 10/31/17 17:45 Sodium 140 mmol/L (132-148) 11/05/17 07:00 Potassium 3.6 mmol/L (3.6-5.0) 11/05/17 07:00 Chloride 102 mmol/L (98-107) 11/05/17 07:00 Carbon Dioxide 28 mmol/L (21-33) 11/05/17 07:00 Anion Gap 14 (10-20) 11/05/17 07:00 BUN 9 mg/dL (7-21) 11/05/17 07:00 Creatinine 0.7 mg/dl (0.8-1.5) L 11/05/17 07:00 Est GFR ( Amer) > 60 11/05/17 07:00 Est GFR (Non-Af Amer) > 60 11/05/17 07:00 POC Glucose (mg/dL) 171 mg/dL (65-110) H 11/05/17 16:10 Random Glucose 132 mg/dL (70-110) H 11/05/17 07:00 Hemoglobin A1c 7.6 % (4.2-6.5) H 10/31/17 18:30 Calcium 9.3 mg/dL (8.4-10.5) 11/05/17 07:00 Phosphorus 3.4 mg/dL (2.5-4.5) 11/05/17 07:00 Magnesium 1.7 mg/dL (1.7-2.2) 11/05/17 07:00 Total Bilirubin 1.5 mg/dL (0.2-1.3) H 11/05/17 07:00 AST 126 U/L (17-59) H 11/05/17 07:00 ALT 97 U/L (7-56) H 11/05/17 07:00 Alkaline Phosphatase 74 U/L (38-126) 11/05/17 07:00 Lactate Dehydrogenase 1120 U/L (333-699) H 10/31/17 17:45 Total Creatine Kinase 180 U/L (35-230) 10/31/17 17:45 Troponin I < 0.01 ng/mL 10/31/17 17:45 C-React Prot High Sens 10.00 mg/L (1.00-3.00) H 10/31/17 18:30 NT-Pro-B Natriuret Pep 194 pg/mL (0-450) 10/31/17 17:45 Total Protein 6.8 g/dL (5.8-8.3) 11/05/17 07:00 Albumin 3.7 g/dL (3.0-4.8) 11/05/17 07:00 Globulin 3.2 gm/dL 11/05/17 07:00 Albumin/Globulin Ratio 1.2 (1.1-1.8) 11/05/17 07:00 Triglycerides 186 mg/dL (35-160) H 10/31/17 17:45 Cholesterol 230 mg/dL (130-200) H 10/31/17 17:45 LDL Cholesterol Direct 169 mg/dL (0-129) H 10/31/17 17:45 HDL Cholesterol 54 mg/dL (29-60) 10/31/17 17:45 Urine Color Yellow (YELLOW) 11/01/17 02:00 Urine Appearance Sl cloudy (CLEAR) 11/01/17 02:00 Urine pH 6.0 (4.7-8.0) 11/01/17 02:00 Ur Specific [place] 1.025 (1.005-1.035) 11/01/17 02:00 Urine Protein 30 mg/dL (<30 mg/dL) H 11/01/17 02:00 Urine Glucose (UA) 100 mg/dL (NEGATIVE) H 11/01/17 02:00 Urine Ketones 15 mg/dL (NEGATIVE) H 11/01/17 02:00 Urine Blood Trace-intact (NEGATIVE) H 11/01/17 02:00 Urine Nitrate Negative (NEGATIVE) 11/01/17 02:00 Urine Bilirubin Negative (NEGATIVE) 11/01/17 02:00 Urine Urobilinogen 2.0 E.U./dL (<1 E.U./dL) H 11/01/17 02:00 Ur Leukocyte Esterase Negative Anival/uL (NEGATIVE) 11/01/17 02:00 Urine RBC 0 - 2 /hpf (0-2) 11/01/17 02:00 Urine WBC 0 - 2 /hpf (0-6) 11/01/17 02:00 Ur Epithelial Cells 0 - 2 /hpf (0-5) 11/01/17 02:00 Salicylates < 1 mg/dL (2.0-20.0) L 10/31/17 17:50 Urine Opiates Screen Negative (NEGATIVE) 10/31/17 20:40 Urine Methadone Screen Negative (NEGATIVE) 10/31/17 20:40 Acetaminophen < 10.0 ug/ml (10.0-20.0) L 10/31/17 17:50 Ur Barbiturates Screen Negative (NEGATIVE) 10/31/17 20:40 Ur Phencyclidine Scrn Negative (NEGATIVE) 10/31/17 20:40 Ur Amphetamines Screen Negative (NEGATIVE) 10/31/17 20:40 U Benzodiazepines Scrn Negative (NEGATIVE) 10/31/17 20:40 U Oth Cocaine Metabols Negative (NEGATIVE) 03/04/18 20:40 U Cannabinoids Screen Negative (NEGATIVE) 10/31/17 20:40 Alcohol, Quantitative 401 mg/dL (0-10) H* 10/31/17 17:50 Attending/Attestation - Attestation I have personally seen and examined this patient.: Yes I have fully participated in the care of the patient.: Yes I have reviewed all pertinent clinical information, including history, physical exam and plan: Yes Notes (Text): 11/06/17 11:51 Medical record note made by the resident after discussion with my direction and input after the patient was personally seen and examined by me. I have reviewed the chart and agree that the record accurately reflects by personal performance of the history, physical exam, data review, and medical decision-making, in the course for the patient. I have also personally directed the plan of care. 62 year old male with a past medical history significant for Atrial Fibrillation on Eliquis, HTN, DM2, and alcohol abuse was admitted with H/O fall , alcohol intoxication, he was found to have atrial fibrillation with RVR , orbital fracture and possible osteomyelitis of C6 and right mandibular body on CT cervical spine and CT Maxilofac[place].He is also found to have elevated LFT.LFT are improving. MRI of C spine is negative for Osteomylitis.MRI of orbit and face were non diagnostic to rule out osteomylitis.Clinically patient is afebrile, no sign of infection on physical examination.Patient case was discussed with JOSÉ Ortega and decision was made to stop the IV antibiotics as his sign and symptoms are not suggestive of osteomylitis.This was discussed with him and his brother in detail.His cultures are negative at the time of discharge.Patient alcohol withdrawal are improved.The issue of ongoing alcohol abuse was discussed in detail. The risk of anticoagulation with drinking was discussed.Patient is agreeable not to drink again and is going to rehab and want to continue his anticoagulation. This issue was discussed in detail with him Patient will be discharged to rehab for rehabilitation. Management plan was discussed in detail with patient. Education was provided.
== END 2017-11-05 20:18 | DRG 138 ==
LOC: ED 17:27 → ERH 20:46 → 2RNO 22:28 → 5RSO 11-04 16:21
PROVIDERS: ADMIT Internal Medicine; ATTEND Internal Medicine
DX: I48.91 Unspecified atrial fibrillation (principal); F10.239 Alcohol dependence with withdrawal, unspecified; S02.81XA Fracture of other specified skull and facial bones, right side, initial encounter for closed fracture; E11.69 Type 2 diabetes mellitus with other specified complication; M46.22 Osteomyelitis of vertebra, cervical region; J44.9 Chronic obstructive pulmonary disease, unspecified; H05.20 Unspecified exophthalmos; I10 Essential (primary) hypertension; E55.9 Vitamin D deficiency, unspecified; F17.210 Nicotine dependence, cigarettes, uncomplicated; M27.2 Inflammatory conditions of jaws; S05.02XA Injury of conjunctiva and corneal abrasion without foreign body, left eye, initial encounter; F41.9 Anxiety disorder, unspecified; E78.5 Hyperlipidemia, unspecified; W22.8XXA Striking against or struck by other objects, initial encounter; Y90.8 Blood alcohol level of 240 mg/100 ml or more; Z91.14 Patient's other noncompliance with medication regimen